=== PATIENT | female | born 1935 | race Caucasian/White ===

== ENCOUNTER 2019-12-08 12:17 | Inpatient (IN) | payer MEDICARE, SELFPAY ==
[2019-12-08] VITALS (21 sets, daily range): BP systolic 134–172; BP diastolic 56–90; PULSE 65–87; RESP 12–18; TEMP 36.3–37; O2SAT 94–100; BMI 31.5
--- NOTE | 2019-12-08 13:25 | XR_ITS ---
WS: [id number] EXAM: AP CHEST: PORTABLE UPRIGHT DATE OF EXAM: 12/08/2019, 1350 hours COMPARISON: Chest x-ray from 05/28/2014 HISTORY: Patient is 84 years old with dyspnea. FINDINGS: The cardiac silhouette is normal in size. The mediastinal contours are normal. The pulmonary vas cularity is normal. Radiograph is lordotic in positioning. Lungs are clear other than loss in the le ft heart border felt to be related to a prominent pericardial fat pad which was also noted back in . There is no effusion or pneumothorax. No acute bony abnormality is seen. XR/XR chest 1V portable [id number] IMPRESSION: No acute pulmonary disease.
--- NOTE | 2019-12-08 13:27 | ECG_ITS ---
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 Measurements Intervals [place] Rate: 74 P: 13 NM: 181 QRS: -4 QRSD: 86 T: 22 QT: 364 QTc: 406 Interpretive Statements SINUS RHYTHM LEFT VENTRICULAR HYPERTROPHY AND ST-T CHANGE [VOLTAGE CRITERIA PLUS ST/T ABNORMALITY] Compared to ECG 08/10/2016 11:42:06 Left ventricular hypertrophy now present ST (T wave) deviation now present Myocardial infarct finding no longer present Electronically Signed On 12-09-2019 19:39:15 CDT by Ras Neely M.D. [email or web address] [email or web address] Technologiesprotestant hospital.[employer]/store/NU/[id number] anjali
--- NOTE | 2019-12-08 13:55 | ED_ITS ---
HPI - Chest Pain General: Chief Complaint: Chest Pain Stated Complaint: CHEST PAIN/ WEAKNESS/ INCREASED CONFUSION Time Seen by Provider: 12/08/19 12:19 History of Present Illness: HPI narrative: 84-year-old female comes in complaining of shaking and weakness. Also saying she is intermittently had chest pain for the last 2 months a little bit more epigastric in nature she has had some shortness of breath and has been becoming progressively weak. She is lives with her daughter and grandson who provide most of her assistance with daily activities of living. Grandson is present emergency room and states she is definitely more confused today started overnight yesterday she was having far less difficulty. She does report during the course of the history having luciana black complaint: chest heaviness and chest discomfort Pertinent past history: other (Diabetes hypertension hyperlipidemia) Onset (ago): month(s) (2) Timing of current episode: episodic and increasing Prior episodes: Yes Onset: during rest and during exertion Pain location: left chest Pain radiation: none Severity: moderate Quality: heaviness Relieving factors: rest Exacerbating factors: exertion Associated symptoms: Reports abdominal pain (Epigastric) and dyspnea; Deny fever(s) Treatment prior to arrival: none Review of Systems Const: Denies: fever(s), chills, body aches, change in appetite, fatigue or malaise ENMT: Denies: throat pain, ear or mastoid pain, nasal discharge or nasal con gestion Card: Denies: chest pain, edema, dyspnea on exertion or orthopnea Resp: Reports: dyspnea GI: Reports: abdominal pain (Epigastric) : Denies: flank pain, difficulty voiding, dysuria, urinary frequency or urinary urgency Skin/Breast: Denies: rash or pruritus PFSH ED PFSH: Medical History Ankle fracture, left Diabetes mellitus type 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 Social History Smoking and tobacco status: never smoked Alcohol intake: never Physical Exam Const: COMMON NORMALS: no acute distress GENERAL APPEARANCE: cooperative and comfortable ORIENTATION/CONSCIOUSNESS: Yes awake, Yes oriented to person, Yes oriented to place and Yes oriented to time HENMT: COMMON NORMALS: normocephalic and atraumatic HEAD & SCALP: normocephalic and atraumatic Eye: COMMON NORMALS: Equal, round and reactive pupils present, EOMs intact bilaterally, conjunctivae normal and no scleral icterus CONJUNCTIVA: Yes conjunctivae normal PUPIL: Yes Equal, round and reactive pupils present Neck/C-Spine: COMMON NORMALS: full ROM, no lymphadenopathy, supple and no JVD Lymph: LYMPHATIC: no lymphadenopathy noted and no lymphedema noted Resp: COMMON NORMALS: normal respiratory effort, No retractions, No use of accessory muscles and clear to auscultation bilaterally AUSCULTATION: clear to auscultation bilaterally Cardio: COMMON NORMALS: no JVD, regular rate, regular rhythm and No murmurs present (Cardio) RATE: regular rate RHYTHM: regular rhythm GI: COMMON NORMALS: Soft to palpation and No hepatosplenomegaly present AUSCULTATION: Yes normoactive bowel sounds PALPATION: Yes Soft to palpation, No Tenderness to palpation present (GI), No Guarding due to palpation present (GI) and Yes No hepatosplenomegaly present Extremity: COMMON NORMALS: normal to inspection, capillary refill normal, no clubbing, cyanosis or edema, no calf tenderness and no pedal edema Neuro: SENSORIUM/ORIENTATION: Yes oriented to person, Yes oriented to place and Yes oriented to time Skin: COMMON NORMALS: no rashes or lesions noted GENERAL SKIN EXAM: no rashes or lesions noted Course Vital Signs: Vital signs: Vital Signs Pulse Rate 87 12/08/19 15:31 Respiratory Rate 18 12/08/19 15:31 Blood Pressure 172/90 12/08/19 15:31 Pulse Oximetry 98 12/08/19 15:31 MDM - Chest Pain MDM Narrative: Medical decision making narrative: Patient is acutely anemic with a hemoglobin of 6.1. She is also mildly hyponatremic discussed with Dr. Ortiz as well as with the patient and her grandson we will go ahead and admit her. Her BUN is elevated she has had black tarry stools as well she was given IV Protonix and will order 2 units of packed red blood cells for transfusion. Lab Data: Labs: Lab Results 08/21/20 08/21/20 08/21/20 Range/Units 13:58 13:58 13:58 WBC 13.5 H (4.0-10.0) 10^3/ uL RBC 2.33 L (4.1-5.3) 10^6/u L Hgb 6.1 L* (11.5-15.3) g/dL Hct 20.7 L* (37.0-47.0) % MCV 88.8 (81-99) fL MCH 26.2 L (28.0-34.0) pg MCHC 29.5 L (30.0-36.0) g/dL RDW 13.2 (12.1-15.1) % Plt Count 398 (130-400) 10^3/c mm MPV 10.0 (7.4-10.4) fL Neut % (Auto) 77.0 % Lymph % (Auto) 16.2 % [place] % (Auto) 4.9 % Eos % (Auto) 0.3 % Baso % (Auto) 0.7 % Neut # (Auto) 10.40 H (1.8-7.7) 10^3/u L Lymph # (Auto) 2.2 (0.8-4.8) 10^3/u L [place] # (Auto) 0.7 (0.2-0.9) 10^3/u L Eos # (Auto) 0.0 (0.0-0.8) 10^3/u L Baso # (Auto) 0.1 (0.0-0.1) 10^3/u L Nucleated RBC % (a uto) 0 % Nucleated RBCs # 0.0 /100WBC Sodium 130 L (136-145) mmol/L Potassium 5.1 (3.5-5.1) mmol/L Chloride 100 (98-107) mmol/L Carbon Dioxide 19 L (22-29) mmol/L Anion Gap 16.1 (5-19) BUN 58 H (8-23) mg/dL Creatinine 1.4 H (0.5-0.9) mg/dL GFR Calculation Not Reportable Glucose 268 H (65-115) mg/dL Calculated Osmolal ity 278 L (285-295) mOsm/k g Calcium 9.3 (8.5-10.5) mg/dL Total Bilirubin 0.2 (0.15-1.2) mg/dL AST 16 (0-32) U/L ALT 14 (0-33) U/L Alkaline Phosphata se 72 (35-105) IU/L Troponin T Baselin e 53 H (0-10) ng/L Total Protein 6.1 L (6.6-8.7) g/dL Albumin 3.4 L (3.5-5.2) g/dL Globulin 2.7 (1.3-4.6) g/dL Urine Color (Yellow) Urine Appearance (CLEAR) Urine pH (5-7) Ur Specific Gravit y (1.005-1.030) Urine Protein (Negative) Urine Glucose (UA) (Normal) Urine Ketones (Negative) Urine Blood (Negative) Urine Nitrate (Negative) Urine Bilirubin (NEGATIVE) Urine Urobilinogen (Negative) mg/dL Ur Leukocyte Joyce ase (Negative) Urine RBC (0-2) /hpf Urine WBC (0-5) /hpf Ur Squamous Epith Cells (0-5) Amorphous Sediment Urine Bacteria (NONE) 12/08/19 Range/Units 14:56 WBC (4.0-10.0) 10^3/ uL RBC (4.1-5.3) 10^6/u L Hgb (11.5-15.3) g/dL Hct (37.0-47.0) % MCV (81-99) fL MCH (28.0-34.0) pg MCHC (30.0-36.0) g/dL RDW (12.1-15.1) % Plt Count (130-400) 10^3/c mm MPV (7.4-10.4) fL Neut % (Auto) % Lymph % (Auto) % [place] % (Auto) % Eos % (Auto) % Baso % (Auto) % Neut # (Auto) (1.8-7.7) 10^3/u L Lymph # (Auto) (0.8-4.8) 10^3/u L [place] # (Auto) (0.2-0.9) 10^3/u L Eos # (Auto) (0.0-0.8) 10^3/u L Baso # (Auto) (0.0-0.1) 10^3/u L Nucleated RBC % (a uto) % Nucleated RBCs # /100WBC Sodium (136-145) mmol/L Potassium (3.5-5.1) mmol/L Chloride (98-107) mmol/L Carbon Dioxide (22-29) mmol/L Anion Gap (5-19) BUN (8-23) mg/dL Creatinine (0.5-0.9) mg/dL GFR Calculation Glucose (65-115) mg/dL Calculated Osmolal ity (285-295) mOsm/k g Calcium (8.5-10.5) mg/dL Total Bilirubin (0.15-1.2) mg/dL AST (0-32) U/L ALT (0-33) U/L Alkaline Phosphata se (35-105) IU/L Troponin T Baselin e (0-10) ng/L Total Protein (6.6-8.7) g/dL Albumin (3.5-5.2) g/dL Globulin (1.3-4.6) g/dL Urine Color Yellow (Yellow) Urine Appearance Hazy A (CLEAR) Urine pH 5 (5-7) Ur Specific Gravit y 1.015 (1.005-1.030) Urine Protein 1+ H (Negative) Urine Glucose (UA) 1+ (Normal) Urine Ketones Negative (Negative) Urine Blood Neg (Negative) Urine Nitrate Negative (Negative) Urine Bilirubin Neg (NEGATIVE) Urine Urobilinogen Neg (Negative) mg/dL Ur Leukocyte Joyce ase Negative (Negative) Urine RBC None (0-2) /hpf Urine WBC 5-10 H (0-5) /hpf Ur Squamous Epith Cells 0-4 H (0-5) Amorphous Sediment Not Reportable Urine Bacteria 3+ H (NONE) Discharge Plan Discharge Patient Disposition: Admitted As Inpatient Admit Provider: Charles Ortiz Clinical Impression: Upper GI bleed, Acute blood loss anemia, Urinary tract infection, Acute kidney injury, Dyslipidemia, Diabetes mellitus type 2 in obese, Mild dementia, Dehydration with hyponatremia, Hypertension, Hypothyroidism Condition: Stable Interventions: ED Discharge Assessment Last Done: 12/08/19 15:31 ED Charges Last Done: 12/08/19 15:31 Discharge Date/Time: 12/08/19 16:09 Coding Level of Care Code ED Evaluator Transfer Students for Valeria Disla
[2019-12-08] MEDS: sodium chloride 0.9% 500 ML 999 ML IV (14:06)
[2019-12-08 14:19] LABS: Basophils # 0.1 10^3/uL (0.0-0.1); Basophils % 0.7 %; Eosinophils % 0.3 %; Lymphocytes # 2.2 10^3/uL (0.8-4.8); Lymphocytes % 16.2 %; Mean Corpuscular HGB Conc 29.5 g/dL (30.0-36.0); Mean Corpuscular Hemoglobin 26.2 pg (28.0-34.0); Mean Corpuscular Volume 88.8 fL (81-99); Monocytes # 0.7 10^3/uL (0.2-0.9); Monocytes % 4.9 %; Nucleated Red Blood Cells % 0 %; Platelet Count 398 10^3/cmm (130-400); Red Blood Count 2.33 10^6/uL (4.1-5.3); Red Cell Distribution Width 13.2 % (12.1-15.1); White Blood Count 13.5 10^3/uL (4.0-10.0)
[2019-12-08 14:27] LABS: Alanine Aminotransferase 14 U/L (0-33); Albumin Level 3.4 g/dL (3.5-5.2); Alkaline Phosphatase 72 IU/L (35-105); Aspartate Amino Transferase 16 U/L (0-32); Blood Urea Nitrogen 58 mg/dL (8-23); Calcium 9.3 mg/dL (8.5-10.5); Carbon Dioxide 19 mmol/L (22-29); Chloride 100 mmol/L (98-107); Globulin 2.7 g/dL (1.3-4.6); Glucose 268 mg/dL (65-115); Osmolality Calculated 278 mOsm/kg (285-295); Sodium 130 mmol/L (136-145); Total Bilirubin 0.2 mg/dL (0.15-1.2); Total Protein 6.1 g/dL (6.6-8.7)
[2019-12-08 14:29] LABS: Troponin(5th) Baseline 53 ng/L (0-10)
[2019-12-08 14:33] LABS: Hematocrit 20.7 % (37.0-47.0); Hemoglobin 6.1 g/dL (11.5-15.3)
[2019-12-08 14:45] LABS: Anion Gap 16.1 (5-19); Potassium 5.1 mmol/L (3.5-5.1)
[2019-12-08 15:21] LABS: Add Urine Microscopic? YES; Bilirubin Urine Neg (NEGATIVE); Blood Urine Neg (Negative); Glucose Urine UA 1+ (Normal); Ketones Urine Negative (Negative); Leukocyte Esterase Urine Negative (Negative); Nitrate Urine Negative (Negative); Protein Urine 1+ (Negative); Specific Gravity, Urine 1.015 (1.005-1.030); Urine Appearance Hazy (CLEAR); Urine Color Yellow (Yellow); Urobilinogen Urine Neg (Negative); pH Urine 5 (5-7)
[2019-12-08 15:24] LABS: Bacteria Urine 3+; Squamous Epithelial Cell Urine 0-4 (0-5)
[2019-12-08 15:25] LABS: Add Urine Culture? Yes
--- NOTE | 2019-12-08 15:27 | ECG_ITS ---
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 Measurements Intervals [place] Rate: 68 P: 64 ME: 179 QRS: 29 QRSD: 85 T: 47 QT: 373 QTc: 398 Interpretive Statements SINUS RHYTHM MODERATE ST DEPRESSION [0.05+ mV ST DEPRESSION] Compared to ECG 08/10/2016 11:42:06 ST (T wave) deviation now present Electronically Signed On 12-10-2019 19:54:42 CDT by Ras Neely M.D. [id number]
[2019-12-08 16:14] LABS: Troponin 5 2HR 54.99 ng/L (0-10); Troponin 5 2HR Delta 1.99 ABS# (0-10)
--- NOTE | 2019-12-08 16:59 | P.HP_ITS ---
Providers/Chief Complaint Admitting Physician: Charles Ortiz MD Chief Complaint: CHEST PAIN/ WEAKNESS/ INCREASED CONFUSION History of Present Illness Nuria Ramos is a 84 year old female was brought to emergency department with generalized weakness and melanotic stools for the last 2 days. She reports burning-like sensation under her left breast and epigastric area. She has been nauseous but did not vomit. She reports feeling very cold in the last several weeks but denies fever or chills. She never had upper endoscopy or colonoscopy. She denies taking any NSAIDs or steroids. Reports frequently taking Tylenol. In emergency department patient was found to have hemoglobin 6.1 as well as what appears to be acute kidney injury with significantly elevated BUN at 58. Her sodium is 130 and she appears very dry and dehydrated. She has been diabetic for the last 20 or so years but denies any previous history of heart disease or stroke. She has minimally elevated troponin with negative delta. She also appears to have UTI. Overall patient is very hard of hearing and poor historian. Patient's grandson at bedside helped provide the history. Review of Systems Const: Denies: fever(s) or chills Eyes: Denies: change in vision ENMT: Denies: throat pain or change in hearing Card: Reports: chest pain; Denies: edema or lightheadedness Resp: Denies: dyspnea or productive cough GI: Reports: abdominal pain, nausea and melena; Denies: vomiting, dysphagia, diarrhea, constipation or hematochezia : Denies: difficulty voiding Musc: Denies: joint pain or joint swelling Skin/Breast: Denies: rash or erythema Neuro: Reports: headache(s) (Minimal frontal headache for the last several days); Denies: weakness in extremities Psych: Denies: depression or suicidal ideation Endo: Denies: excessive sweating Man/Lymph: Denies: easy bleeding or tender lymph nodes All/Imm: Denies: throat swelling Medications/Allergies Home Medications Medication Instructions Recorded Confirmed Last Taken Type acetaminophen [Tylenol Extra 1,000 mg PO PRN 12/08/19 12/08/19 12/08/19 History Strength] amlodipine 5 mg PO BID 12/08/19 12/08/19 Unknown History furosemide 20 mg PO DAILY 12/08/19 12/08/19 Unknown History insulin aspart U-100 [Novolog See Rx Instructions .ROUTE .COMPLEX 12/08/19 12/08/19 Unknown History Flexpen U-100 Insulin] insulin detemir U-100 [Levemir See Rx Instructions .ROUTE .COMPLEX 12/08/19 12/08/19 Unknown History FlexTouch U-100 Insuln] levothyroxine 112 mcg PO DAILY 12/08/19 12/08/19 12/08/19 History metformin 750 mg PO DAILY 12/08/19 12/08/19 Unknown History metoprolol succinate 400 mg PO DAILY 12/08/19 12/08/19 Unknown History potassium chloride 20 meq PO DAILY 12/08/19 12/08/19 Unknown History pravastatin 80 mg PO DAILY 12/08/19 12/08/19 Unknown History Allergies Allergy/AdvReac Type Severity Reaction Status Date / Time No Known Drug Allergies Allergy Unknown Verified 12/08/19 14:04 PFSH Acute PFSH: Medical History (Updated 12/08/19 @ 17:15 by Charles Ortiz MD) Ankle fracture, left Diabetes mellitus type 2 in obese Dyslipidemia Hypertension Hypothyroidism Mild dementia Surgical History (Updated 12/08/19 @ 17:09 by Charles Ortiz MD) 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 Social History (Updated 12/08/19 @ 17:09 by Charles Ortiz MD) Smoking and tobacco status: never smoked Alcohol intake: never Vitals/I&O/Wt Last Vital Signs Pulse 87 12/08/19 15:31 Resp 18 12/08/19 15:31 BP 172/90 12/08/19 15:31 Pulse Ox 98 12/08/19 15:31 12/08/19 12/08/19 12/08/19 06:59 14:59 22:59 Intake Total 500 / 500 Balance 500 / 500 Weight last 48 hrs Weight 99.79 kg Physical Exam Const: COMMON NORMALS: no acute distress, patient oriented x3 and alert HENMT: COMMON NORMALS: normocephalic and atraumatic HEAD & SCALP: normocephalic and atraumatic Eye: COMMON NORMALS: EOMs intact bilaterally, conjunctivae normal and no scleral icterus CONJUNCTIVA: Yes conjunctivae normal Neck/C-Spine: COMMON NORMALS: no lymphadenopathy and no meningeal signs Lymph: LYMPHATIC: no lymphadenopathy noted Chest: OTHER: Tenderness was elicited on palpation of the chest bilaterally but left side more than right. Resp: COMMON NORMALS: No use of accessory muscles and clear to auscultation bilaterally AUSCULTATION: clear to auscultation bilaterally Cardio: COMMON NORMALS: regular rate, regular rhythm and No murmurs present (Cardio) RATE: regular rate RHYTHM: regular rhythm OTHER: No lower extremity edema GI: COMMON NORMALS: Soft to palpation PALPATION: Yes Soft to palpation and Yes Tenderness to palpation present (GI) (Epigastric area) RECTAL EXAM: deferred : COMMON NORMALS: Yes no CVA tenderness BLADDER/KIDNEY EXAM: Yes no CVA tenderness Back/Pelvis: COMMON NORMALS: no CVA tenderness and thoracic and lumbar spine normal to inspection Extremity: COMMON NORMALS: normal to inspection and capillary refill normal Neuro: COMMON NORMALS: no focal motor deficits SENSORIUM/ORIENTATION: Yes alert MENINGEAL SIGNS: Yes no meningeal signs OTHER: Oriented to self and place. Hard of hearing. Psych: COMMON NORMALS: mental status grossly normal, Normal thought process present and cooperative THOUGHT PROCESS: Normal thought process present Skin: COMMON NORMALS: no rashes or lesions noted GENERAL SKIN EXAM: no rashes or lesions noted Data : 12/08/19 13:58 12/08/19 13:58 A&P Assessment and plan (1) Hypertension: Status: Acute (2) Acute blood loss anemia: Status: Acute (3) Upper GI bleed: Status: Acute (4) Urinary tract infection: Status: Acute (5) Acute kidney injury: Prerenal. Likely second to dehydration and GI bleed. Status: Acute (6) Dyslipidemia: Status: Acute (7) Hypothyroidism: Status: Acute (8) Diabetes mellitus type 2 in obese: Status: Acute (9) Mild dementia: Status: Acute (10) Dehydration with hyponatremia: Status: Acute Additional A&P Information PLAN: Start patient on ceftriaxone. Awaiting urine culture results. 2 units of PRBC was ordered in ER. 80 mg Protonix IV was given in ER and we will continue 40 mg twice daily. Start patient on gentle IV hydration. Clear liquid diet for now. If patient continues to bleed consider upper endoscopy otherwise if hemoglobin stabilizes we may consider outpatient evaluation. Hold Lasix. Attestations Medical Necessity Statement*: Patient with UTI and acute GI bleed requires close inpatient monitoring and treatment. I expect patient will require more than 2 midnights. Time Spent in Patient Care: Greater than 35 minutes Coding Level of Care Code Acute Cilnical Scientist for Chg Fwd Diagnoses Hypertension I10 Acute blood loss anemia D62 Upper GI bleed K92.2 Urinary tract infection N39.0 Acute kidney injury N17.9 Dyslipidemia E78.5 Hypothyroidism E03.9 Diabetes mellitus type 2 in obese E11.69; E66.9 Mild dementia F03.90 Dehydration with hyponatremia E86.0; E87.1
[2019-12-08 18:02] LABS: Glucose Point of Care 251 mg/dL (70-110)
[2019-12-08] MEDS: sodium chloride 0.9% 1,000 ML 75 ML IV (18:07)
[2019-12-08] MEDS: cefTRIAXone 1,000 MG in sodium chloride 0.9% (plus) 50 ML 100 MG IV (18:08)
[2019-12-08] MEDS: amlodipine 5 mg Tablet PO (18:08)
--- NOTE | 2019-12-08 18:25 | PC.NURSE ---
80mg IV protonix ordered for pt in ED, she did not receive this dose in the ED. Dr. Ortiz notified.Telephone orders received to give pt one time dose of 80mg IV protonix and then give 40mg IV BID.
[2019-12-08] MEDS: pantoprazole 40 mg SDV IVP ×2 (18:29)
[2019-12-08 21:27] LABS: Glucose Point of Care 170 mg/dL (70-110)
--- NOTE | 2019-12-08 22:20 | PC.NURSE ---
PRBC'S Second unit of PRBC's started by MARTI Lockwood
[2019-12-09] VITALS (7 sets, daily range): BP systolic 120–149; BP diastolic 60–83; PULSE 61–68; RESP 16–20; TEMP 36.6–36.9; O2SAT 91–99
[2019-12-09 04:02] LABS: Basophils # 0.1 10^3/uL (0.0-0.1); Basophils % 0.9 %; Eosinophils # 0.2 10^3/uL (0.0-0.8); Eosinophils % 1.9 %; Hematocrit 23.6 % (37.0-47.0); Hemoglobin 7.4 g/dL (11.5-15.3); Lymphocytes # 2.6 10^3/uL (0.8-4.8); Lymphocytes % 21.1 %; Mean Corpuscular HGB Conc 31.4 g/dL (30.0-36.0); Mean Corpuscular Hemoglobin 28.1 pg (28.0-34.0); Mean Corpuscular Volume 89.7 fL (81-99); Mean Platelet Volume 9.7 fL (7.4-10.4); Monocytes # 0.9 10^3/uL (0.2-0.9); Monocytes % 7.4 %; Neutrophils # 8.54 10^3/uL (1.8-7.7); Neutrophils % 68.1 %; Nucleated Red Blood Cells % 0 %; Platelet Count 344 10^3/cmm (130-400); Red Blood Count 2.63 10^6/uL (4.1-5.3); Red Cell Distribution Width 14.6 % (12.1-15.1); White Blood Count 12.5 10^3/uL (4.0-10.0)
[2019-12-09 04:25] LABS: Magnesium 1.7 mg/dL (1.7-2.3); Phosphorus 2.6 mg/dL (2.5-4.5)
[2019-12-09 04:26] LABS: Alanine Aminotransferase 11 U/L (0-33); Alkaline Phosphatase 65 IU/L (35-105); Anion Gap 12.7 (5-19); Aspartate Amino Transferase 14 U/L (0-32); Blood Urea Nitrogen 44 mg/dL (8-23); Calcium 9.8 mg/dL (8.5-10.5); Carbon Dioxide 21 mmol/L (22-29); Chloride 108 mmol/L (98-107); Glucose 155 mg/dL (65-115); Osmolality Calculated 285 mOsm/kg (285-295); Potassium 4.7 mmol/L (3.5-5.1); Sodium 137 mmol/L (136-145); Total Bilirubin 0.2 mg/dL (0.15-1.2)
[2019-12-09 04:33] LABS: Estmated Average Glucose 160; Hemoglobin A1C 7.2 % (4.0-6.0)
[2019-12-09 05:23] LABS: Partial Thromboplastin Time 32.1 SECONDS (23.9-36.7)
[2019-12-09] MEDS: pantoprazole 40 mg SDV IVP ×2 (06:04→17:19)
[2019-12-09 06:57] LABS: Glucose Point of Care 177 mg/dL (70-110)
[2019-12-09] MEDS: amlodipine 5 mg Tablet PO ×2 (08:33→17:19)
[2019-12-09] MEDS: levothyroxine 112 mcg Tablet PO (08:33)
[2019-12-09] MEDS: atorvastatin 40 mg Tablet 20 MG PO (08:33)
[2019-12-09] MEDS: metoprolol succinate ER (24 HR) 100 mg Tablet 400 MG PO (08:37)
[2019-12-09] MEDS: sodium chloride 0.9% 1,000 ML 75 ML IV ×2 (08:41→20:18)
[2019-12-09 11:44] LABS: Glucose Point of Care 278 mg/dL (70-110)
[2019-12-09] MEDS: acetaminophen 500 mg Tablet 1000 MG PO (14:38)
--- NOTE | 2019-12-09 15:38 | P.PN_ITS ---
Subjective Subjective: Interval history: Patient reports feeling better. Denies shortness of breath or chest pain. Denies abdominal pain. Denies being nauseous. Hemoglobin is at 7.4 after 2 units of blood. Patient's vitals otherwise are adequate with no evidence of hypotension. No bowel movement. She appears to be more attentive. Vitals/I&O/Wt Last Vital Signs Temp 98.4 F 12/09/19 15:29 Pulse 66 12/09/19 15:29 Resp 18 12/09/19 15:29 BP 120/60 12/09/19 15:29 Pulse Ox 99 12/09/19 15:29 12/09/19 12/09/19 12/09/19 06:59 14:59 22:59 Intake Total 500 / 1350 1120 / 1120 Output Total 550 / 750 600 / 600 Balance -50 / 600 520 / 520 Weight last 48 hrs Weight 99.79 kg Physical Exam Const: COMMON NORMALS: no acute distress and patient oriented x3 Resp: COMMON NORMALS: normal respiratory effort and clear to auscultation bilaterally AUSCULTATION: clear to auscultation bilaterally Cardio: COMMON NORMALS: regular rate, regular rhythm and S2 normal heart sound present RATE: regular rate RHYTHM: regular rhythm HEART SOUNDS: S2 normal heart sound present OTHER: No lower extremity edema GI: COMMON NORMALS: Normal to inspection, nondistended, normoactive bowel sounds present, Soft to palpation and non-tender PALPATION: Yes Soft to palpation Neuro: COMMON NORMALS: patient oriented x3 and no focal motor deficits Data : 12/09/19 03:36 12/09/19 03:36 Micro: Microbiology 12/08/19 14:56 Urine Culture - Preliminary Urine,Clean Catch Gram Negative Rods A&P Assessment and plan (1) Hypertension: Status: Acute (2) Acute blood loss anemia: Status: Acute (3) Upper GI bleed: Status: Acute (4) Urinary tract infection: Status: Acute (5) Acute kidney injury: Prerenal. Likely second to dehydration and GI bleed. Status: Acute (6) Dyslipidemia: Status: Acute (7) Hypothyroidism: Status: Acute (8) Diabetes mellitus type 2 in obese: Status: Acute (9) Mild dementia: Status: Acute (10) Dehydration with hyponatremia: Status: Acute Additional A&P Information PLAN: Continue IV hydration and clear liquid diet. Discussed with Dr. Brown who will see patient in consultation for EGD tomorrow morning. Monitor vitals and consider transfusing if shows evidence of hypotension. Attestations Medical Necessity Statement*: Patient with upper GI bleed requires close inpatient monitoring, treatment and evaluation. Time Spent in Patient Care: 16 - 35 minutes Coding Level of Care Code Acute Turner Machine for [facility] Fwd Diagnoses Hypertension I10 Acute blood loss anemia D62 Upper GI bleed K92.2 Urinary tract infection N39.0 Acute kidney injury N17.9 Dyslipidemia E78.5 Hypothyroidism E03.9 Diabetes mellitus type 2 in obese E11.69; E66.9 Mild dementia F03.90 Dehydration with hyponatremia E86.0; E87.1
--- NOTE | 2019-12-09 16:42 | P.CONIM_ITS ---
Providers/Reason For Consult Consulting Physican/Specialty*: Dean Villalobos MD Reason for Consult*: GI bleed Attending Physician: Charles Ortiz MD History of Present Illness History of Present Illness Chief Complaint: Black stool History of present illness: Nuria Ramos is a 84 year old female presented to the emergency department with generalized fatigue and has been experiencing black stool over the last couple of days, patient denies any previous endoscopies done on her before no history of peptic ulcer disease or gastric surgery, patient has been nauseous but no evidence of hematemesis or vomiting in general. Patient denies taking NSAIDs or steroids and she was found to have UTI General surgery was consulted for further evaluation and potential intervention in the form of diagnostic EGD Review of Systems General: Reports: 10 or more systems reviewed and unremarkable except in HPI and below Meds/Allergies Home Medications and Allergies Home Medications Medication Instructions Recorded Confirmed Last Taken Type acetaminophen [Tylenol Extra 1,000 mg PO PRN 12/08/19 12/08/19 12/08/19 History Strength] amlodipine 5 mg PO BID 12/08/19 12/08/19 Unknown History furosemide 20 mg PO DAILY 12/08/19 12/08/19 Unknown History insulin aspart U-100 [Novolog See Rx Instructions .ROUTE .COMPLEX 12/08/19 12/08/19 Unknown History Flexpen U-100 Insulin] insulin detemir U-100 [Levemir See Rx Instructions .ROUTE .COMPLEX 12/08/19 12/08/19 Unknown History FlexTouch U-100 Insuln] levothyroxine 112 mcg PO DAILY 12/08/19 12/08/19 12/08/19 History metformin 750 mg PO DAILY 12/08/19 12/08/19 Unknown History metoprolol succinate 400 mg PO DAILY 12/08/19 12/08/19 Unknown History potassium chloride 20 meq PO DAILY 12/08/19 12/08/19 Unknown History pravastatin 80 mg PO DAILY 12/08/19 12/08/19 Unknown History Allergies Allergy/AdvReac Type Severity Reaction Status Date / Time No Known Drug Allergies Allergy Unknown Verified 12/09/19 17:47 Current Medications Current Medications Generic Name Dose Route Start Last Admin Trade Name Freq PRN Reason Stop Dose Admin Acetaminophen 1,000 mg 12/08/19 17:15 12/09/19 14:38 Tylenol PO 1,000 mg PRN SEGUN Administration Amlodipine Besylate 5 mg 12/08/19 18:00 12/09/19 08:33 Norvasc PO 5 mg BID SEGUN Administration Atorvastatin Calcium 20 mg 12/09/19 09:00 12/09/19 08:33 Lipitor PO 20 mg DAILY SEGUN Administration Ceftriaxone Sodium 1,000 mg/ 50 mls @ 100 mls/hr 12/08/19 17:30 12/08/19 18:08 Sodium Chloride IV 100 mls/hr Q24H SEGUN Administration Protocol Sodium Chloride 1,000 mls @ 75 mls/hr 12/08/19 17:30 12/09/19 08:41 Sodium Chloride 0.9% IV 75 mls/hr .[id number] SEGUN Administration Insulin Aspart 0 unit 12/08/19 18:00 12/09/19 12:35 Novolog SUBCUT 10 unit WM&BEDTIME SEGUN Administration Protocol Levothyroxine Sodium 112 mcg 12/09/19 09:00 12/09/19 08:33 Synthroid PO 112 mcg DAILY SEGUN Administration Metoprolol Succinate 400 mg 12/09/19 09:00 12/09/19 08:37 Toprol Xl PO 400 mg DAILY SEGUN Administration Pantoprazole Sodium 40 mg 12/08/19 17:30 12/09/19 06:04 Protonix IVP 40 mg Q12H SEGUN Administration PFSH Acute PFSH: Medical History Ankle fracture, left Diabetes mellitus type 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 Social History Smoking and tobacco status: never smoked Alcohol intake: never Vitals/I&O/Wt Last Vital Signs Temp 98.4 F 12/09/19 15:29 Pulse 66 12/09/19 15:29 Resp 18 12/09/19 15:29 BP 120/60 12/09/19 15:29 Pulse Ox 99 12/09/19 15:29 12/09/19 12/09/19 12/09/19 06:59 14:59 22:59 Intake Total 500 / 1350 1120 / 1120 Output Total 550 / 750 600 / 600 Balance -50 / 600 520 / 520 Weight last 48 hrs Weight 220 lb Physical Exam Narrative: EXAM NARRATIVE: Patient is conscious alert oriented X3 BMI 32 Head and neck examination PERRLA no masses no cervical lymphadenopathy no jaundice Cardiac examination audible S1-S2 no murmurs no gallops no arrhythmias Chest is clear bilateral,abscence of Rhonchi or wheezes,no surgical emphysema Abdomen nontender nondistended soft no organomegaly guarding or rigidity/no signs of peritonitis Obese Data Micro: Micro: Microbiology 12/09/19 14:40 Occult Blood (FIT) - Final Stool Routine Col lection 12/08/19 14:56 Urine Culture - Pr eliminary Urine,Clean Catch Gram Negative R ods A&P Assessment and plan (1) Upper GI bleed: Plan of care; After thorough history and physical examination and reviewing the chart, plan to perform a diagnostic esophagogastroduodenoscopy with possible biopsy in the GI lab tomorrow. I discussed with the patient in detail the risk,benefits,alternatives and indications.The risk of aspiration, bleeding, soft tissue injury, perforation of the stomach/esophagus and other potential concomitant complications were explained to the patient in details.The patient understood this well and did agree to proceed. Rationale was carefully and clearly discussed with the patient.Appropriate informed consent have been reviewed and signed All questions have been answered and all concerns have been addressed to patient's satisfaction. Status: Acute Consult Attestations Medical Necessity Statement: Per Hospitalist service Time Spent in Patient Care: (>than 50% of time spent in counselling and/or direct pt care on unit) . 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
[2019-12-09 16:46] LABS: Glucose Point of Care 210 mg/dL (70-110)
[2019-12-09] MEDS: cefTRIAXone 1,000 MG in sodium chloride 0.9% (plus) 50 ML 100 MG IV (17:18)
--- NOTE | 2019-12-09 19:02 | PC.NURSE ---
End of Shift report Patient did well today. Patient did have a large dark stool and a sample was sent. Patient's will be NPO at midnight and will have a scope at 0800 in the morning. Patient's consent is signed. Patient is up with one assist to the bedside commode and voids 200 to 300 mls at a time. Patient has had Tylenol one time today for back pain.
[2019-12-09 20:33] LABS: Glucose Point of Care 237 mg/dL (70-110)
[2019-12-10] VITALS (17 sets, daily range): BP systolic 112–147; BP diastolic 48–84; PULSE 61–79; RESP 16–18; TEMP 36.2–36.9; O2SAT 94–100
[2019-12-10 04:34] LABS: Magnesium 1.6 mg/dL (1.7-2.3); Phosphorus 2.3 mg/dL (2.5-4.5)
[2019-12-10] MEDS: pantoprazole 40 mg SDV IVP ×2 (05:10→17:22)
[2019-12-10 06:46] LABS: Glucose Point of Care 228 mg/dL (70-110)
--- NOTE | 2019-12-10 07:27 | PC.NURSE ---
Spoke with Naima patient's daughter who verbalized understanding of GI scope today.
--- NOTE | 2019-12-10 07:37 | PC.NURSE ---
Patient to GI lab at this time.
--- NOTE | 2019-12-10 07:43 | ANES.PAUD2 ---
Pre-Anesthetic Update Pre-Anesthetic Assessment: Date of Surgery/Procedure: 12/10/19 Preop Diagnosis: GI bleed Proposed Procedure: Operation Date: 12/10/19 08:00 Proposed Procedures p EGD(Not Applicable) - Dean Villalobos MD Any changes to Pre-Anesthetic Assessment?: Yes Labs Last 48hrs: Laboratory Results - last 48 hr 12/08/19 12/08/19 12/08/19 13:58 13:58 13:58 WBC 13.5 H RBC 2.33 L Hgb 6.1 L* Hct 20.7 L* MCV 88.8 MCH 26.2 L MCHC 29.5 L RDW 13.2 Plt Count 398 MPV 10.0 Neut % (Auto) 77.0 Lymph % (Auto) 16.2 [place] % (Auto) 4.9 Eos % (Auto) 0.3 Baso % (Auto) 0.7 Neut # (Auto) 10.40 H Lymph # (Auto) 2.2 [place] # (Auto) 0.7 Eos # (Auto) 0.0 Baso # (Auto) 0.1 Nucleated RBC % (a uto) 0 Nucleated RBCs # 0.0 PT INR APTT Sodium 130 L Potassium 5.1 Chloride 100 Carbon Dioxide 19 L Anion Gap 16.1 BUN 58 H Creatinine 1.4 H GFR Calculation Not Reportable Glucose 268 H POC Glucose Estimat Average Gl ucose Hemoglobin A1c Calculated Osmolal ity 278 L Calcium 9.3 Phosphorus Magnesium Total Bilirubin 0.2 AST 16 ALT 14 Alkaline Phosphata se 72 Troponin T Baselin e 53 H Troponin T 120 Min [place] Troponin T Troponin T Hi Sens 6Hr Troponin T Hi Sens 6Hr Delta Total Protein 6.1 L Albumin 3.4 L Globulin 2.7 Urine Color Urine Appearance Urine pH Ur Specific Gravit y Urine Protein Urine Glucose (UA) Urine Ketones Urine Blood Urine Nitrate Urine Bilirubin Urine Urobilinogen Ur Leukocyte Joyce ase Urine RBC Urine WBC Ur Squamous Epith Cells Amorphous Sediment Urine Bacteria Blood Type Rho(D) Type Antibody Screen Crossmatch 12/08/19 12/08/19 12/08/19 14:56 15:40 15:40 WBC RBC Hgb Hct MCV MCH MCHC RDW Plt Count MPV Neut % (Auto) Lymph % (Auto) [place] % (Auto) Eos % (Auto) Baso % (Auto) Neut # (Auto) Lymph # (Auto) [place] # (Auto) Eos # (Auto) Baso # (Auto) Nucleated RBC % (a uto) Nucleated RBCs # PT INR APTT Sodium Potassium Chloride Carbon Dioxide Anion Gap BUN Creatinine GFR Calculation Glucose POC Glucose Estimat Average Gl ucose Hemoglobin A1c Calculated Osmolal ity Calcium Phosphorus Magnesium Total Bilirubin AST ALT Alkaline Phosphata se Troponin T Baselin e Troponin T 120 Min [place] 54.99 H Delta Troponin T 1.99 Troponin T Hi Sens 6Hr Troponin T Hi Sens 6Hr Delta Total Protein Albumin Globulin Urine Color Yellow Urine Appearance Hazy A Urine pH 5 Ur Specific Gravit y 1.015 Urine Protein 1+ H Urine Glucose (UA) 1+ Urine Ketones Negative Urine Blood Neg Urine Nitrate Negative Urine Bilirubin Neg Urine Urobilinogen Neg Ur Leukocyte Joyce ase Negative Urine RBC None Urine WBC 5-10 H Ur Squamous Epith Cells 0-4 H Amorphous Sediment Not Reportable Urine Bacteria 3+ H Blood Type O Positive Rho(D) Type Positive Antibody Screen Negative Crossmatch See Detail 12/08/19 12/08/19 12/08/19 17:54 20:51 21:25 WBC RBC Hgb Hct MCV MCH MCHC RDW Plt Count MPV Neut % (Auto) Lymph % (Auto) [place] % (Auto) Eos % (Auto) Baso % (Auto) Neut # (Auto) Lymph # (Auto) [place] # (Auto) Eos # (Auto) Baso # (Auto) Nucleated RBC % (a uto) Nucleated RBCs # PT INR APTT Sodium Potassium Chloride Carbon Dioxide Anion Gap BUN Creatinine GFR Calculation Glucose POC Glucose 251 170 Estimat Average Gl ucose Hemoglobin A1c Calculated Osmolal ity Calcium Phosphorus Magnesium Total Bilirubin AST ALT Alkaline Phosphata se Troponin T Baselin e Troponin T 120 Min [place] Troponin T Troponin T Hi Sens 6Hr 60.90 H Troponin T Hi Sens 6Hr Delta 7.90 Total Protein Albumin Globulin Urine Color Urine Appearance Urine pH Ur Specific Gravit y Urine Protein Urine Glucose (UA) Urine Ketones Urine Blood Urine Nitrate Urine Bilirubin Urine Urobilinogen Ur Leukocyte Joyce ase Urine RBC Urine WBC Ur Squamous Epith Cells Amorphous Sediment Urine Bacteria Blood Type Rho(D) Type Antibody Screen Crossmatch 12/09/19 12/09/19 12/09/19 03:36 03:36 03:36 WBC 12.5 H RBC 2.63 L Hgb 7.4 L Hct 23.6 L MCV 89.7 MCH 28.1 MCHC 31.4 D RDW 14.6 Plt Count 344 MPV 9.7 Neut % (Auto) 68.1 Lymph % (Auto) 21.1 [place] % (Auto) 7.4 Eos % (Auto) 1.9 Baso % (Auto) 0.9 Neut # (Auto) 8.54 H Lymph # (Auto) 2.6 [place] # (Auto) 0.9 Eos # (Auto) 0.2 Baso # (Auto) 0.1 Nucleated RBC % (a uto) 0 Nucleated RBCs # 0.0 PT 15.60 H INR 1.20 APTT 32.1 Sodium 137 Potassium 4.7 Chloride 108 H Carbon Dioxide 21 L Anion Gap 12.7 BUN 44 H Creatinine 1.4 H GFR Calculation Not Reportable Glucose 155 H POC Glucose Estimat Average Gl ucose Hemoglobin A1c Calculated Osmolal ity 285 Calcium 9.8 Phosphorus Magnesium Total Bilirubin 0.2 AST 14 ALT 11 Alkaline Phosphata se 65 Troponin T Baselin e Troponin T 120 Min [place] Troponin T Troponin T Hi Sens 6Hr Troponin T Hi Sens 6Hr [place] Total Protein 5.0 L Albumin 3.0 L Globulin 2.0 Urine Color Urine Appearance Urine pH Ur Specific Gravit y Urine Protein Urine Glucose (UA) Urine Ketones Urine Blood Urine Nitrate Urine Bilirubin Urine Urobilinogen Ur Leukocyte Joyce ase Urine RBC Urine WBC Ur Squamous Epith Cells Amorphous Sediment Urine Bacteria Blood Type Rho(D) Type Antibody Screen Crossmatch 12/09/19 12/09/19 12/09/19 03:36 03:36 06:50 WBC RBC Hgb Hct MCV MCH MCHC RDW Plt Count MPV Neut % (Auto) Lymph % (Auto) [place] % (Auto) Eos % (Auto) Baso % (Auto) Neut # (Auto) Lymph # (Auto) [place] # (Auto) Eos # (Auto) Baso # (Auto) Nucleated RBC % (a uto) Nucleated RBCs # PT INR APTT Sodium Potassium Chloride Carbon Dioxide Anion Gap BUN Creatinine GFR Calculation Glucose POC Glucose 177 Estimat Average Gl ucose 160 Hemoglobin A1c 7.2 H Calculated Osmolal ity Calcium Phosphorus 2.6 Magnesium 1.7 Total Bilirubin AST ALT Alkaline Phosphata se Troponin T Baselin e Troponin T 120 Min [place] Troponin T Troponin T Hi Sens 6Hr Troponin T Hi Sens 6Hr [place] Total Protein Albumin Globulin Urine Color Urine Appearance Urine pH Ur Specific Gravit y Urine Protein Urine Glucose (UA) Urine Ketones Urine Blood Urine Nitrate Urine Bilirubin Urine Urobilinogen Ur Leukocyte Joyce ase Urine RBC Urine WBC Ur Squamous Epith Cells Amorphous Sediment Urine Bacteria Blood Type Rho(D) Type Antibody Screen Crossmatch 12/09/19 12/09/19 12/09/19 11:35 16:34 20:28 WBC RBC Hgb Hct MCV MCH MCHC RDW Plt Count MPV Neut % (Auto) Lymph % (Auto) [place] % (Auto) Eos % (Auto) Baso % (Auto) Neut # (Auto) Lymph # (Auto) [place] # (Auto) Eos # (Auto) Baso # (Auto) Nucleated RBC % (a uto) Nucleated RBCs # PT INR APTT Sodium Potassium Chloride Carbon Dioxide Anion Gap BUN Creatinine GFR Calculation Glucose POC Glucose 278 210 237 Estimat Average Gl ucose Hemoglobin A1c Calculated Osmolal ity Calcium Phosphorus Magnesium Total Bilirubin AST ALT Alkaline Phosphata se Troponin T Baselin e Troponin T 120 Min [place] Troponin T Troponin T Hi Sens 6Hr Troponin T Hi Sens 6Hr [place] Total Protein Albumin Globulin Urine Color Urine Appearance Urine pH Ur Specific Gravit y Urine Protein Urine Glucose (UA) Urine Ketones Urine Blood Urine Nitrate Urine Bilirubin Urine Urobilinogen Ur Leukocyte Joyce ase Urine RBC Urine WBC Ur Squamous Epith Cells Amorphous Sediment Urine Bacteria Blood Type Rho(D) Type Antibody Screen Crossmatch 12/10/19 12/10/19 03:54 06:39 WBC RBC Hgb Hct MCV MCH MCHC RDW Plt Count MPV Neut % (Auto) Lymph % (Auto) [place] % (Auto) Eos % (Auto) Baso % (Auto) Neut # (Auto) Lymph # (Auto) [place] # (Auto) Eos # (Auto) Baso # (Auto) Nucleated RBC % (a uto) Nucleated RBCs # PT INR APTT Sodium Potassium Chloride Carbon Dioxide Anion Gap BUN Creatinine GFR Calculation Glucose POC Glucose 228 Estimat Average Gl ucose Hemoglobin A1c Calculated Osmolal ity Calcium Phosphorus 2.3 L Magnesium 1.6 L Total Bilirubin AST ALT Alkaline Phosphata se Troponin T Baselin e Troponin T 120 Min [place] Troponin T Troponin T Hi Sens 6Hr Troponin T Hi Sens 6Hr [place] Total Protein Albumin Globulin Urine Color Urine Appearance Urine pH Ur Specific Gravit y Urine Protein Urine Glucose (UA) Urine Ketones Urine Blood Urine Nitrate Urine Bilirubin Urine Urobilinogen Ur Leukocyte Joyce ase Urine RBC Urine WBC Ur Squamous Epith Cells Amorphous Sediment Urine Bacteria Blood Type Rho(D) Type Antibody Screen Crossmatch Vitals: Temperature 98.5 F 12/10/19 04:00 Temperature Source Oral 12/10/19 04:00 Pulse Rate 66 12/10/19 04:00 Pulse Rhythm 12/09/19 20:00 Pulse Strength 3+ Normal 12/09/19 20:00 Respiratory Rate 17 12/10/19 04:00 Respiratory Effort Non-Labored 12/09/19 20:00 Respiratory Depth Normal 12/09/19 20:00 Respiratory Patter n 12/09/19 20:00 Blood Pressure 142/78 12/10/19 04:00 Blood Pressure Deborah n 99 12/10/19 04:00 Blood Pressure Pos ition Semi Fowlers 12/10/19 04:00 Pulse Oximetry 96 12/10/19 04:00 Oxygen Delivery Me thod 12/10/19 04:00 Sepsis Recent Feve r Within 48 Hours No 12/08/19 12:18 Sepsis New/Unexpla ined Change in Men felicity Status No 12/08/19 12:18 Cardiac Studies: No Data to Display
[2019-12-10] MEDS: sodium chloride 0.9% 1,000 ML 30 ML IV (07:49)
--- NOTE | 2019-12-10 07:51 | P.ANESASSM_ITS ---
Pre-Anesthetic Assessment Pre-Anesthetic Assessment: Height/Weight: Height 1.78 m Weight 99.79 kg Temp Pulse Resp BP Pulse Ox 97.6 F 79 18 144/75 98 12/10/19 07:47 12/10/19 07:47 12/10/19 07:47 12/10/19 07:47 12/10/19 07:47 Preop Diagnosis: GI bleed Proposed Procedure: Operation Date: 12/10/19 08:00 Proposed Procedures p EGD(Not Applicable) - Dean Villalobos MD Was Beta Pedrito taken within 24 hours: Yes Last intake: Intake Last Liquid Date 12/09/19 Last Liquid Time 23:00 Last Solid Date 12/08/19 Last Solid Time 17:00 Social: Social History: No alcohol and No tobacco Exam: Pre-Anes Outpt Exam: alert, oriented x 3, clear to auscultation bilaterally and regular rate & rhythm Airway: Submandibular: WNL Cervical ROM: WNL MP: 2 Dentition: Full History/ROS: No significant history except as noted and No significant complaints Pulmonary: Pulmonary: None reported CV/HEM: CV/HEM: HTN : : None reported Hepatic: Hepatic: None reported GI: GI: GERD Metabolic: Metabolic: DM, Morbid obesity and Thyroid Musc/skel: Musc/skel: None reported Neuropsych: Neuropsych: Dementia Anesthetic Plan: ASA status: 3 Anesthesia: Anesthesia Evaluation and MAC Risk of > 500 ml blood loss (7ml/kg in children): No Meds/Allergies Current Medications: Current Medications Generic Name Dose Route Start Last Admin Trade Name Freq PRN Reason Stop Dose Admin Acetaminophen 1,000 mg 12/08/19 17:15 12/09/19 14:38 Tylenol PO 1,000 mg PRN SEGUN Administration Amlodipine Besylat e 5 mg 12/08/19 18:00 12/09/19 17:19 Norvasc PO 5 mg BID SEGUN Administration Atorvastatin Calci um 20 mg 12/09/19 09:00 12/09/19 08:33 Lipitor PO 20 mg DAILY SEGUN Administration Ceftriaxone Sodium 1,000 mg/ 50 mls @ 100 mls/ hr 12/08/19 17:30 12/09/19 17:18 Sodium Chloride IV 100 mls/hr Q24H SEGUN Administration Protocol Sodium Chloride 1,000 mls @ 75 ml s/hr 12/08/19 17:30 12/09/19 20:18 Sodium Chloride 0.9% IV 75 mls/hr .[id number] SEGUN Administration Sodium Chloride 1,000 mls @ 30 ml s/hr 12/10/19 07:20 12/10/19 07:49 Sodium Chloride 0.9% IV 12/11/19 07:19 30 mls/hr .Q24H ONE Administration Insulin Aspart 0 unit 12/08/19 18:00 12/09/19 20:44 Novolog SUBCUT 8 unit WM&BEDTIME SEGUN Administration Protocol Levothyroxine Sodi um 112 mcg 12/09/19 09:00 12/09/19 08:33 Synthroid PO 112 mcg DAILY SEGUN Administration Metoprolol Succina te 400 mg 12/09/19 09:00 12/09/19 08:37 Toprol Xl PO 400 mg DAILY SEGUN Administration Pantoprazole Sodiu m 40 mg 12/08/19 16:06 12/09/19 17:19 Protonix IVP 40 mg ONCE SEGUN Administration Pantoprazole Sodiu m 40 mg 12/08/19 17:30 12/10/19 05:10 Protonix IVP 40 mg Q12H SEGUN Administration PFSH Anesthesia PFSH: Medical History Ankle fracture, left Diabetes mellitus type 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 Social History Smoking and tobacco status: never smoked Alcohol intake: never Data Anesthesia CBC & Chem 7: 12/09/19 03:36 12/09/19 03:36 Other Labs: Laboratory Results - last 48 hr 12/08/19 12/08/19 12/08/19 13:58 13:58 13:58 WBC 13.5 H RBC 2.33 L Hgb 6.1 L* Hct 20.7 L* MCV 88.8 MCH 26.2 L MCHC 29.5 L RDW 13.2 Plt Count 398 MPV 10.0 Neut % (Auto) 77.0 Lymph % (Auto) 16.2 [place] % (Auto) 4.9 Eos % (Auto) 0.3 Baso % (Auto) 0.7 Neut # (Auto) 10.40 H Lymph # (Auto) 2.2 [place] # (Auto) 0.7 Eos # (Auto) 0.0 Baso # (Auto) 0.1 Nucleated RBC % (auto) 0 Nucleated RBCs # 0.0 PT INR APTT Sodium 130 L Potassium 5.1 Chloride 100 Carbon Dioxide 19 L Anion Gap 16.1 BUN 58 H Creatinine 1.4 H GFR Calculation Not Reportable Glucose 268 H POC Glucose Estimat Average Glucose Hemoglobin A1c Calculated Osmolality 278 L Calcium 9.3 Phosphorus Magnesium Total Bilirubin 0.2 AST 16 ALT 14 Alkaline Phosphatase 72 Troponin T Baseline 53 H Troponin T 120 Minute Delta Troponin T Troponin T Hi Sens 6Hr Troponin T Hi Sens 6Hr Delta Total Protein 6.1 L Albumin 3.4 L Globulin 2.7 Urine Color Urine Appearance Urine pH Ur Specific [place] Urine Protein Urine Glucose (UA) Urine Ketones Urine Blood Urine Nitrate Urine Bilirubin Urine Urobilinogen Ur Leukocyte Esterase Urine RBC Urine WBC Ur Squamous Epith Cells Amorphous Sediment Urine Bacteria Blood Type Rho(D) Type Antibody Screen Crossmatch 12/08/19 12/08/19 12/08/19 14:56 15:40 15:40 WBC RBC Hgb Hct MCV MCH MCHC RDW Plt Count MPV Neut % (Auto) Lymph % (Auto) [place] % (Auto) Eos % (Auto) Baso % (Auto) Neut # (Auto) Lymph # (Auto) [place] # (Auto) Eos # (Auto) Baso # (Auto) Nucleated RBC % (auto) Nucleated RBCs # PT INR APTT Sodium Potassium Chloride Carbon Dioxide Anion Gap BUN Creatinine GFR Calculation Glucose POC Glucose Estimat Average Glucose Hemoglobin A1c Calculated Osmolality Calcium Phosphorus Magnesium Total Bilirubin AST ALT Alkaline Phosphatase Troponin T Baseline Troponin T 120 Minute 54.99 H Delta Troponin T 1.99 Troponin T Hi Sens 6Hr Troponin T Hi Sens 6Hr Delta Total Protein Albumin Globulin Urine Color Yellow Urine Appearance Hazy A Urine pH 5 Ur Specific [place] 1.015 Urine Protein 1+ H Urine Glucose (UA) 1+ Urine Ketones Negative Urine Blood Neg Urine Nitrate Negative Urine Bilirubin Neg Urine Urobilinogen Neg Ur Leukocyte Esterase Negative Urine RBC None Urine WBC 5-10 H Ur Squamous Epith Cells 0-4 H Amorphous Sediment Not Reportable Urine Bacteria 3+ H Blood Type O Positive Rho(D) Type Positive Antibody Screen Negative Crossmatch See Detail 12/08/19 12/08/19 12/08/19 17:54 20:51 21:25 WBC RBC Hgb Hct MCV MCH MCHC RDW Plt Count MPV Neut % (Auto) Lymph % (Auto) [place] % (Auto) Eos % (Auto) Baso % (Auto) Neut # (Auto) Lymph # (Auto) [place] # (Auto) Eos # (Auto) Baso # (Auto) Nucleated RBC % (auto) Nucleated RBCs # PT INR APTT Sodium Potassium Chloride Carbon Dioxide Anion Gap BUN Creatinine GFR Calculation Glucose POC Glucose 251 170 Estimat Average Glucose Hemoglobin A1c Calculated Osmolality Calcium Phosphorus Magnesium Total Bilirubin AST ALT Alkaline Phosphatase Troponin T Baseline Troponin T 120 Minute Delta Troponin T Troponin T Hi Sens 6Hr 60.90 H Troponin T Hi Sens 6Hr Delta 7.90 Total Protein Albumin Globulin Urine Color Urine Appearance Urine pH Ur Specific [place] Urine Protein Urine Glucose (UA) Urine Ketones Urine Blood Urine Nitrate Urine Bilirubin Urine Urobilinogen Ur Leukocyte Esterase Urine RBC Urine WBC Ur Squamous Epith Cells Amorphous Sediment Urine Bacteria Blood Type Rho(D) Type Antibody Screen Crossmatch 12/09/19 12/09/19 12/09/19 03:36 03:36 03:36 WBC 12.5 H RBC 2.63 L Hgb 7.4 L Hct 23.6 L MCV 89.7 MCH 28.1 MCHC 31.4 D RDW 14.6 Plt Count 344 MPV 9.7 Neut % (Auto) 68.1 Lymph % (Auto) 21.1 [place] % (Auto) 7.4 Eos % (Auto) 1.9 Baso % (Auto) 0.9 Neut # (Auto) 8.54 H Lymph # (Auto) 2.6 [place] # (Auto) 0.9 Eos # (Auto) 0.2 Baso # (Auto) 0.1 Nucleated RBC % (auto) 0 Nucleated RBCs # 0.0 PT 15.60 H INR 1.20 APTT 32.1 Sodium 137 Potassium 4.7 Chloride 108 H Carbon Dioxide 21 L Anion Gap 12.7 BUN 44 H Creatinine 1.4 H GFR Calculation Not Reportable Glucose 155 H POC Glucose Estimat Average Glucose Hemoglobin A1c Calculated Osmolality 285 Calcium 9.8 Phosphorus Magnesium Total Bilirubin 0.2 AST 14 ALT 11 Alkaline Phosphatase 65 Troponin T Baseline Troponin T 120 Minute Delta Troponin T Troponin T Hi Sens 6Hr Troponin T Hi Sens 6Hr Delta Total Protein 5.0 L Albumin 3.0 L Globulin 2.0 Urine Color Urine Appearance Urine pH Ur Specific [place] Urine Protein Urine Glucose (UA) Urine Ketones Urine Blood Urine Nitrate Urine Bilirubin Urine Urobilinogen Ur Leukocyte Esterase Urine RBC Urine WBC Ur Squamous Epith Cells Amorphous Sediment Urine Bacteria Blood Type Rho(D) Type Antibody Screen Crossmatch 12/09/19 12/09/19 12/09/19 03:36 03:36 06:50 WBC RBC Hgb Hct MCV MCH MCHC RDW Plt Count MPV Neut % (Auto) Lymph % (Auto) [place] % (Auto) Eos % (Auto) Baso % (Auto) Neut # (Auto) Lymph # (Auto) [place] # (Auto) Eos # (Auto) Baso # (Auto) Nucleated RBC % (auto) Nucleated RBCs # PT INR APTT Sodium Potassium Chloride Carbon Dioxide Anion Gap BUN Creatinine GFR Calculation Glucose POC Glucose 177 Estimat Average Glucose 160 Hemoglobin A1c 7.2 H Calculated Osmolality Calcium Phosphorus 2.6 Magnesium 1.7 Total Bilirubin AST ALT Alkaline Phosphatase Troponin T Baseline Troponin T 120 Minute Delta Troponin T Troponin T Hi Sens 6Hr Troponin T Hi Sens 6Hr Delta Total Protein Albumin Globulin Urine Color Urine Appearance Urine pH Ur Specific [place] Urine Protein Urine Glucose (UA) Urine Ketones Urine Blood Urine Nitrate Urine Bilirubin Urine Urobilinogen Ur Leukocyte Esterase Urine RBC Urine WBC Ur Squamous Epith Cells Amorphous Sediment Urine Bacteria Blood Type Rho(D) Type Antibody Screen Crossmatch 12/09/19 12/09/19 12/09/19 11:35 16:34 20:28 WBC RBC Hgb Hct MCV MCH MCHC RDW Plt Count MPV Neut % (Auto) Lymph % (Auto) [place] % (Auto) Eos % (Auto) Baso % (Auto) Neut # (Auto) Lymph # (Auto) [place] # (Auto) Eos # (Auto) Baso # (Auto) Nucleated RBC % (auto) Nucleated RBCs # PT INR APTT Sodium Potassium Chloride Carbon Dioxide Anion Gap BUN Creatinine GFR Calculation Glucose POC Glucose 278 210 237 Estimat Average Glucose Hemoglobin A1c Calculated Osmolality Calcium Phosphorus Magnesium Total Bilirubin AST ALT Alkaline Phosphatase Troponin T Baseline Troponin T 120 Minute Delta Troponin T Troponin T Hi Sens 6Hr Troponin T Hi Sens 6Hr Delta Total Protein Albumin Globulin Urine Color Urine Appearance Urine pH Ur Specific [place] Urine Protein Urine Glucose (UA) Urine Ketones Urine Blood Urine Nitrate Urine Bilirubin Urine Urobilinogen Ur Leukocyte Esterase Urine RBC Urine WBC Ur Squamous Epith Cells Amorphous Sediment Urine Bacteria Blood Type Rho(D) Type Antibody Screen Crossmatch 12/10/19 12/10/19 03:54 06:39 WBC RBC Hgb Hct MCV MCH MCHC RDW Plt Count MPV Neut % (Auto) Lymph % (Auto) [place] % (Auto) Eos % (Auto) Baso % (Auto) Neut # (Auto) Lymph # (Auto) [place] # (Auto) Eos # (Auto) Baso # (Auto) Nucleated RBC % (auto) Nucleated RBCs # PT INR APTT Sodium Potassium Chloride Carbon Dioxide Anion Gap BUN Creatinine GFR Calculation Glucose POC Glucose 228 Estimat Average Glucose Hemoglobin A1c Calculated Osmolality Calcium Phosphorus 2.3 L Magnesium 1.6 L Total Bilirubin AST ALT Alkaline Phosphatase Troponin T Baseline Troponin T 120 Minute Delta Troponin T Troponin T Hi Sens 6Hr Troponin T Hi Sens 6Hr Delta Total Protein Albumin Globulin Urine Color Urine Appearance Urine pH Ur Specific [place] Urine Protein Urine Glucose (UA) Urine Ketones Urine Blood Urine Nitrate Urine Bilirubin Urine Urobilinogen Ur Leukocyte Esterase Urine RBC Urine WBC Ur Squamous Epith Cells Amorphous Sediment Urine Bacteria Blood Type Rho(D) Type Antibody Screen Crossmatch Micro: Microbiology 12/09/19 14:40 Occult Blood (FIT) - Final Stool Routine Collection 12/08/19 14:56 Urine Culture - Preliminary Urine,Clean Catch Gram Negative Rods Cardiac Studies: No Data to Display
[2019-12-10] MEDS: EPINEPHrine 1 mg/mL INJ SUBCUT ×2 (08:21→08:26)
--- NOTE | 2019-12-10 08:31 | SUR.OPER ---
0810 Epinephrine 1.2 mg total injected into duodenal ulcer.
--- NOTE | 2019-12-10 08:52 | PC.NURSE ---
Patient returned from GI lab at this time.
[2019-12-10] MEDS: atorvastatin 40 mg Tablet 20 MG PO (09:02)
[2019-12-10] MEDS: metoprolol succinate ER (24 HR) 100 mg Tablet 400 MG PO (09:02)
[2019-12-10] MEDS: levothyroxine 112 mcg Tablet PO (09:02)
[2019-12-10] MEDS: amlodipine 5 mg Tablet PO ×2 (09:02→17:22)
[2019-12-10] MEDS: sucralfate 1 gm/10 mL Oral Liq UDC PO ×3 (09:02→19:46)
--- NOTE | 2019-12-10 09:51 | P.PN_ITS ---
Subjective Subjective: Interval history: Patient undergone uneventful diagnostic EGD and therapeutic were large ulcer was found in the bulb of the duodenum that was injected with epinephrine. Vitals/I&O/Wt Last Vital Signs Temp 97.6 F 12/10/19 08:13 Pulse 68 12/10/19 08:36 Resp 18 12/10/19 08:36 BP 143/60 12/10/19 08:36 Pulse Ox 100 12/10/19 08:36 12/09/19 12/10/19 12/10/19 22:59 06:59 14:59 Intake Total 1221.25 / 2341.25 0 / 2341.25 800 / 800 Output Total 800 / 1400 900 / 2300 0 / 0 Balance 421.25 / 941.25 -900 / 41.25 800 / 800 Weight last 48 hrs Weight 220 lb Physical Exam Narrative: EXAM NARRATIVE: Patient is conscious alert oriented X3 BMI 32 Head and neck examination PERRLA no masses no cervical lymphadenopathy no jaundice Abdomen nontender nondistended soft no organomegaly guarding or rigidity/no signs of peritonitis Obese Data : 12/09/19 03:36 12/09/19 03:36 Micro: Microbiology 12/08/19 14:56 Urine Culture - Preliminary Urine,Clean Catch Gram Negative Rods 12/09/19 14:40 Occult Blood (FIT) - Final Stool Routine Collection A&P Assessment and plan (1) Duodenal ulcer: Raise the head of the bed 4-6 inches Frequent small meals through the day Avoid smoking or Chewing Tobacco Avoid excess coffee, tea, and other caffeinated beverages Avoid garments that fit tightly through the abdomen Avoid eating before going to sleep Avoid nonsteroidal anti-inflammatory drugs (NSAIDs) when possible Anti-reflux diet Anti-reflux medications as prescribed Emphasis on weight management Carafate 1 g every 6 hours Patient will require repeat diagnostic EGD in 4 to 6 weeks Shall the patient encounter signs and symptoms of bleeding she may require angioembolization I did discuss and updated Ms. Naima Ramos the patient's daughter on [phone] on patient's condition and expectations Assurance and education All questions have been answered and all concerns have been addressed to patient's satisfaction. Status: Acute Attestations Medical Necessity Statement*: Per hospitalist service Coding Level of Care Code Acute Specification Manager for [facility] Fwd Diagnoses Duodenal ulcer K26.9
[2019-12-10 10:40] LABS: Glucose Point of Care 303 mg/dL (70-110)
--- NOTE | 2019-12-10 11:18 | PM.PN ---
Subjective Subjective: Interval history: Patient had EGD performed this morning showing large ulcer in the bulb of the duodenum that was injected with epinephrine. Patient continues to have melanotic stools yesterday and this morning. Denies shortness of breath or chest pain. Continues to have minimal epigastric discomfort. Vitals/I&O/Wt Last Vital Signs Temp 97.9 F 12/10/19 10:54 Pulse 61 12/10/19 10:54 Resp 16 12/10/19 10:54 BP 147/67 12/10/19 10:54 Pulse Ox 97 12/10/19 10:54 12/09/19 12/10/19 12/10/19 22:59 06:59 14:59 Intake Total 1221.25 / 2341.25 0 / 2341.25 1300 / 1300 Output Total 800 / 1400 900 / 2300 200 / 200 Balance 421.25 / 941.25 -900 / 41.25 1100 / 1100 Weight last 48 hrs Weight 99.79 kg Physical Exam Const: COMMON NORMALS: no acute distress and patient oriented x3 Resp: COMMON NORMALS: normal respiratory effort and clear to auscultation bilaterally AUSCULTATION: clear to auscultation bilaterally Cardio: COMMON NORMALS: regular rate, regular rhythm and S2 normal heart sound present RATE: regular rate RHYTHM: regular rhythm HEART SOUNDS: S2 normal heart sound present OTHER: No lower extremity edema GI: COMMON NORMALS: Normal to inspection, nondistended, normoactive bowel sounds present and Soft to palpation PALPATION: Yes Soft to palpation OTHER: Slight epigastric area tenderness. Neuro: COMMON NORMALS: patient oriented x3 and no focal motor deficits Data : 12/09/19 03:36 12/09/19 03:36 Micro: Microbiology 12/08/19 14:56 Urine Culture - Preliminary Urine,Clean Catch Gram Negative Rods 12/09/19 14:40 Occult Blood (FIT) - Final Stool Routine Collection A&P Assessment and plan (1) Hypertension: Status: Acute (2) Acute blood loss anemia: Status: Acute (3) Upper GI bleed: Status: Acute (4) Urinary tract infection: Status: Acute (5) Acute kidney injury: Prerenal. Likely second to dehydration and GI bleed. Status: Acute (6) Dyslipidemia: Status: Acute (7) Hypothyroidism: Status: Acute (8) Diabetes mellitus type 2 in obese: Status: Acute (9) Mild dementia: Status: Acute (10) Dehydration with hyponatremia: Status: Acute Additional A&P Information PLAN: Continue IV hydration and clear liquid diet. Awaiting labs. Patient clinically appears to be improving but still at risk for significant GI bleed and if that happens Dr. Villalobos recommends artery embolization procedure. Attestations Medical Necessity Statement*: Patient with GI bleed requires close inpatient monitoring and treatment until deemed safe for discharge. Time Spent in Patient Care: 16 - 35 minutes Coding Level of Care Code Acute Financial Analyst Accountant for g Fwd Diagnoses Hypertension I10 Acute blood loss anemia D62 Upper GI bleed K92.2 Urinary tract infection N39.0 Acute kidney injury N17.9 Dyslipidemia E78.5 Hypothyroidism E03.9 Diabetes mellitus type 2 in obese E11.69; E66.9 Mild dementia F03.90 Dehydration with hyponatremia E86.0; E87.1
[2019-12-10 11:28] LABS: Basophils # 0.1 10^3/uL (0.0-0.1); Eosinophils # 0.4 10^3/uL (0.0-0.8); Eosinophils % 3.5 %; Lymphocytes # 3.2 10^3/uL (0.8-4.8); Lymphocytes % 29.7 %; Mean Corpuscular HGB Conc 30.7 g/dL (30.0-36.0); Mean Corpuscular Hemoglobin 28.1 pg (28.0-34.0); Mean Corpuscular Volume 91.4 fL (81-99); Mean Platelet Volume 10.1 fL (7.4-10.4); Monocytes # 0.8 10^3/uL (0.2-0.9); Monocytes % 7.5 %; Neutrophils % 57.5 %; Nucleated Red Blood Cells % 0.2 %; Platelet Count 360 10^3/cmm (130-400); Red Blood Count 2.21 10^6/uL (4.1-5.3); White Blood Count 10.6 10^3/uL (4.0-10.0)
[2019-12-10 11:37] LABS: Hematocrit 20.2 % (37.0-47.0); Hemoglobin 6.2 g/dL (11.5-15.3)
[2019-12-10 11:44] LABS: Alanine Aminotransferase 13 U/L (0-33); Albumin Level 2.9 g/dL (3.5-5.2); Alkaline Phosphatase 57 IU/L (35-105); Anion Gap 12.4 (5-19); Aspartate Amino Transferase 13 U/L (0-32); Blood Urea Nitrogen 33 mg/dL (8-23); Calcium 9.1 mg/dL (8.5-10.5); Carbon Dioxide 19 mmol/L (22-29); Chloride 108 mmol/L (98-107); Globulin 2.5 g/dL (1.3-4.6); Glucose 142 mg/dL (65-115); Osmolality Calculated 280 mOsm/kg (285-295); Potassium 4.4 mmol/L (3.5-5.1); Sodium 135 mmol/L (136-145); Total Bilirubin 0.2 mg/dL (0.15-1.2); Total Protein 5.4 g/dL (6.6-8.7)
--- NOTE | 2019-12-10 12:23 | PC.CHAP ---
Pastoral Care Encounter/Spiritual Assessment Type of Contact [] Declined collection systems administrator visit [] Patient/Family/Request visit [] Outpatient visit [] Follow-up visit [] Physician referral [] Code/Alert [] Routine visit [] Staff referral [] Actively dying [] Patient sleeping [] Family support [] [] Out of room [] Palliative care [] [X] Receiving care in room [] Pre-surgical visit [] Trauma [] Long length of stay [] ICU visit [] Other: Relational/Emotional Strength [] Patient feels connected with others/family/visitors/staff [] Distress [] Loneliness/isolation [] Abandonment Spirituality of Patient [] Person of Darshana [] Attends Mandaen of their Darshana [] Believes in Prayer [] Reads Bible or Yarsani materials [] There are Spiritual issues to be addressed Head Holder Interventions [] Prayer [] Active listening [] Non-anxious presence [] Spiritual/emotional support [] Crisis/trauma care [] Spiritual counseling [] Bereavement support [] Provided bereavement packet [] Provided Bible/devotional materials [] Provided toy/stuffed animal, coloring book to patient or family member [] Provided Communion [] Anointing/[place] [] Salvation [] Completed spiritual assessment [] Other: Impact on Illness or Injury [] Angry [] Fearful [] Anxious [] Often cries [] Exhaustion [] Unable to work [] Unable to attend mormon [] Unable to walk/stand [] Unable to read [] Unable to drive [] Unable to eat/drink [] Unable to sleep [] Unable to be with family [] Patient intubated [] Other: Summary Time spent with patient
[2019-12-10] MEDS: sodium chloride 0.9% 1,000 ML 75 ML IV ×2 (13:58→19:46)
[2019-12-10] MEDS: acetaminophen 500 mg Tablet 1000 MG PO (15:18)
[2019-12-10 16:46] LABS: Glucose Point of Care 102 mg/dL (70-110)
[2019-12-10] MEDS: cefTRIAXone 1,000 MG in sodium chloride 0.9% (plus) 50 ML 100 MG IV (17:22)
--- NOTE | 2019-12-10 17:37 | PC.NURSE ---
Called blood bank to see if blood is ready and it is not. Blood bank will call when it is
--- NOTE | 2019-12-10 18:04 | PC.NURSE ---
Contacted blood bank at this time and blood is still not available.
--- NOTE | 2019-12-10 18:40 | PC.NURSE ---
First unit of blood started. Patient is A&Ox3. Respirations even and non-labored on room air. No obvious signs of distress noted.
--- NOTE | 2019-12-10 18:50 | PC.NURSE ---
End of shift report. Patient over all had a good day. Patient had a scope this am which revealed a ulcer. Patient hemoglobin dropped again and she will receive 2 units of blood tonight. Patient is having black tarry stools. She had two large BMs today. Patient's grandson visited her today. Patient is A&Ox3. Respirations even and non-labored on room air. Patient has been afebrile.
[2019-12-10 19:40] LABS: Glucose Point of Care 153 mg/dL (70-110)
[2019-12-11] VITALS (9 sets, daily range): BP systolic 115–168; BP diastolic 63–81; PULSE 63–71; RESP 16–20; TEMP 36.3–37.8; O2SAT 95–99
[2019-12-11] MEDS: sodium chloride 0.9% (100 ml) 100 ML 125 ML (01:39)
[2019-12-11] MEDS: sucralfate 1 gm/10 mL Oral Liq UDC PO ×4 (01:39→21:36)
[2019-12-11 05:01] LABS: Alanine Aminotransferase 13 U/L (0-33); Albumin Level 3.1 g/dL (3.5-5.2); Alkaline Phosphatase 72 IU/L (35-105); Aspartate Amino Transferase 15 U/L (0-32); Blood Urea Nitrogen 17 mg/dL (8-23); Calcium 9.6 mg/dL (8.5-10.5); Carbon Dioxide 20 mmol/L (22-29); Chloride 111 mmol/L (98-107); Glucose 170 mg/dL (65-115); Osmolality Calculated 288 mOsm/kg (285-295); Sodium 139 mmol/L (136-145); Total Bilirubin 0.3 mg/dL (0.15-1.2); Total Protein 5.1 g/dL (6.6-8.7)
[2019-12-11 05:02] LABS: Anion Gap 12.5 (5-19); Potassium 4.5 mmol/L (3.5-5.1)
[2019-12-11] MEDS: pantoprazole 40 mg SDV IVP ×3 (05:19→17:31)
[2019-12-11 05:51] LABS: Magnesium 1.6 mg/dL (1.7-2.3); Phosphorus 2.4 mg/dL (2.5-4.5)
[2019-12-11 06:22] LABS: Glucose Point of Care 197 mg/dL (70-110)
[2019-12-11 06:48] LABS: Basophils # 0.1 10^3/uL (0.0-0.1); Basophils % 0.9 %; Eosinophils # 0.3 10^3/uL (0.0-0.8); Eosinophils % 2.5 %; Hematocrit 27.4 % (37.0-47.0); Hemoglobin 8.6 g/dL (11.5-15.3); Lymphocytes # 2.1 10^3/uL (0.8-4.8); Lymphocytes % 15.8 %; Mean Corpuscular HGB Conc 31.4 g/dL (30.0-36.0); Mean Corpuscular Hemoglobin 27.8 pg (28.0-34.0); Mean Corpuscular Volume 88.7 fL (81-99); Mean Platelet Volume 9.4 fL (7.4-10.4); Monocytes % 7.1 %; Neutrophils # 9.84 10^3/uL (1.8-7.7); Neutrophils % 73.1 %; Nucleated Red Blood Cells % 0 %; Platelet Count 362 10^3/cmm (130-400); Red Blood Count 3.09 10^6/uL (4.1-5.3); Red Cell Distribution Width 15.4 % (12.1-15.1); White Blood Count 13.5 10^3/uL (4.0-10.0)
[2019-12-11] MEDS: metoprolol succinate ER (24 HR) 100 mg Tablet 400 MG PO (07:55)
[2019-12-11] MEDS: levothyroxine 112 mcg Tablet PO (07:57)
[2019-12-11] MEDS: amlodipine 5 mg Tablet PO ×2 (07:59→17:13)
[2019-12-11] MEDS: atorvastatin 40 mg Tablet 20 MG PO (07:59)
[2019-12-11] MEDS: magnesium sulfate premix 2 GM/50 ML PIGGYBACK IV (08:00)
[2019-12-11 08:45] LABS: Glucose Point of Care 210 mg/dL (70-110)
--- NOTE | 2019-12-11 10:00 | PC.SOCIAL ---
Pg 2 IMM Explained to pt Pg 2 IMM. Provided pt a copy. No questions voiced. Signed, dated, & timed a copy & placed in chart.
[2019-12-11 10:51] LABS: Glucose Point of Care 241 mg/dL (70-110)
--- NOTE | 2019-12-11 11:22 | PC.NURSE ---
Spoke with Naima Ramos daughter in law of pt. informed her of pt status that the wants to continue to monitor pt. hemoglobin levels to ensure they stabilize AG
--- NOTE | 2019-12-11 11:28 | PM.PN ---
Subjective Subjective: Interval history: Patient's hemoglobin drop down below 7 yesterday and she received 2 units of blood with appropriate response to 8.4 this morning. She denies shortness of breath or chest pain. She had no bowel movement today. Her BUN normalized. This morning patient denies abdominal pain and her epigastric area tenderness much improved. White blood cell count increased today and urine culture is back with Serratia Vitals/I&O/Wt Last Vital Signs Temp 97.4 F L 12/11/19 11:11 Pulse 63 12/11/19 11:11 Resp 18 12/11/19 11:11 BP 153/63 12/11/19 11:11 Pulse Ox 98 12/11/19 11:11 12/10/19 12/11/19 12/11/19 22:59 06:59 14:59 Intake Total 1145 / 3865 350 / 4215 Output Total 750 / 950 200 / 1150 Balance 395 / 2915 150 / 3065 Physical Exam Const: COMMON NORMALS: no acute distress and patient oriented x3 Resp: COMMON NORMALS: normal respiratory effort and clear to auscultation bilaterally AUSCULTATION: clear to auscultation bilaterally Cardio: COMMON NORMALS: regular rate, regular rhythm and S2 normal heart sound present RATE: regular rate RHYTHM: regular rhythm HEART SOUNDS: S2 normal heart sound present OTHER: No lower extremity edema GI: COMMON NORMALS: Normal to inspection, nondistended, normoactive bowel sounds present and Soft to palpation PALPATION: Yes Soft to palpation and Yes Tenderness to palpation present (GI) (Minimally) Neuro: COMMON NORMALS: patient oriented x3 and no focal motor deficits Data : 12/11/19 06:37 12/11/19 04:24 Micro: Microbiology 12/08/19 14:56 Urine Culture - Final Urine,Clean Catch Serratia marcescens A&P Assessment and plan (1) Hypertension: Status: Acute (2) Acute blood loss anemia: Status: Acute (3) Upper GI bleed: Status: Acute (4) Urinary tract infection: Due to Serratia Marcescens Status: Acute (5) Acute kidney injury: Prerenal. Likely second to dehydration and GI bleed. Status: Acute (6) Dyslipidemia: Status: Acute (7) Hypothyroidism: Status: Acute (8) Diabetes mellitus type 2 in obese: Status: Acute (9) Mild dementia: Status: Acute (10) Dehydration with hyponatremia: Status: Acute Additional A&P Information PLAN: We will continue gentle IV hydration and clear liquid diet. Discontinue ceftriaxone and start patient on Levaquin. Physical therapy. We will monitor for another day or 2 to make sure patient does not rebleed and hemoglobin remained stable given her high risk condition. Should patient rebleed or hemoglobin continues to drop we will have to transfer patient for embolization procedure Attestations Medical Necessity Statement*: Patient with severe GI bleed and large ulcer requires close inpatient monitoring and treatment until deemed safe for discharge. Time Spent in Patient Care: 16 - 35 minutes Coding Level of Care Code Acute Debone Processing Supervisor for g Fwd Diagnoses Hypertension I10 Acute blood loss anemia D62 Upper GI bleed K92.2 Urinary tract infection N39.0 Acute kidney injury N17.9 Dyslipidemia E78.5 Hypothyroidism E03.9 Diabetes mellitus type 2 in obese E11.69; E66.9 Mild dementia F03.90 Dehydration with hyponatremia E86.0; E87.1
[2019-12-11] MEDS: sodium chloride 0.9% 1,000 ML 75 ML IV (11:39)
[2019-12-11] MEDS: levofloxacin-dextrose 5 % 750 MG/150 ML PREMIX 100 MG IV (11:52)
--- NOTE | 2019-12-11 14:10 | PC.RESP ---
PATIENT DOES NOT HAVE A QUALIFYING HX OF LUNG DISEASE AND DOES NOT QUALIFY FOR PULMONARY REHAB AT THIS TIME.
[2019-12-11] MEDS: cefTAZidime 1,000 MG in sodium chloride 0.9% (plus) 50 ML 150 MG IV (14:24)
--- NOTE | 2019-12-11 15:38 | PC.RESP ---
PATIENT DOES NOT HAVE A QUALIFYING HX OF LUNG DISEASE AND DOES NOT QUALIFY FOR PULMONARY REHAB AT THIS TIME.
[2019-12-11 17:22] LABS: Glucose Point of Care 172 mg/dL (70-110)
[2019-12-11 20:36] LABS: Glucose Point of Care 180 mg/dL (70-110)
[2019-12-12] VITALS: BP 152/76; PULSE 65; RESP 18; TEMP 37.2; O2SAT 95
[2019-12-12] MEDS: sodium chloride 0.9% 1,000 ML 75 ML IV (02:09)
[2019-12-12] MEDS: cefTAZidime 1,000 MG in sodium chloride 0.9% (plus) 50 ML 150 MG IV ×2 (02:09→13:39)
[2019-12-12] MEDS: sucralfate 1 gm/10 mL Oral Liq UDC PO ×4 (02:09→22:17)
[2019-12-12 04:00] VITALS: BP 171/73; PULSE 65; RESP 16; TEMP 37; O2SAT 96
[2019-12-12 06:08] LABS: Basophils # 0.1 10^3/uL (0.0-0.1); Basophils % 0.9 %; Eosinophils # 0.3 10^3/uL (0.0-0.8); Hemoglobin 8.5 g/dL (11.5-15.3); Lymphocytes # 2.2 10^3/uL (0.8-4.8); Lymphocytes % 18.8 %; Mean Corpuscular HGB Conc 31.5 g/dL (30.0-36.0); Mean Corpuscular Hemoglobin 28.3 pg (28.0-34.0); Mean Platelet Volume 9.4 fL (7.4-10.4); Monocytes # 0.9 10^3/uL (0.2-0.9); Monocytes % 7.5 %; Neutrophils # 7.92 10^3/uL (1.8-7.7); Nucleated Red Blood Cells % 0 %; Platelet Count 397 10^3/cmm (130-400); Red Cell Distribution Width 15.8 % (12.1-15.1); White Blood Count 11.5 10^3/uL (4.0-10.0)
[2019-12-12] MEDS: pantoprazole 40 mg SDV IVP ×4 (06:16→17:24)
[2019-12-12 06:30] LABS: Alanine Aminotransferase 8 U/L (0-33); Albumin Level 2.9 g/dL (3.5-5.2); Alkaline Phosphatase 70 IU/L (35-105); Anion Gap 11.6 (5-19); Aspartate Amino Transferase 8 U/L (0-32); Blood Urea Nitrogen 10 mg/dL (8-23); Calcium 8.8 mg/dL (8.5-10.5); Carbon Dioxide 20 mmol/L (22-29); Chloride 109 mmol/L (98-107); Creatinine Clr Calc Pharmacy 52.6041; Globulin 2.7 g/dL (1.3-4.6); Glucose 163 mg/dL (65-115); Osmolality Calculated 284 mOsm/kg (285-295); Potassium 3.6 mmol/L (3.5-5.1); Sodium 137 mmol/L (136-145); Total Bilirubin 0.3 mg/dL (0.15-1.2); Total Protein 5.6 g/dL (6.6-8.7)
[2019-12-12 06:40] LABS: Glucose Point of Care 160 mg/dL (70-110)
[2019-12-12 08:00] VITALS: BP 154/68; PULSE 73; RESP 18; TEMP 37.2; O2SAT 98
[2019-12-12] MEDS: levothyroxine 112 mcg Tablet PO (08:01)
[2019-12-12] MEDS: amlodipine 5 mg Tablet PO ×2 (08:02→17:13)
[2019-12-12] MEDS: atorvastatin 40 mg Tablet 20 MG PO (08:02)
[2019-12-12] MEDS: metoprolol succinate ER (24 HR) 100 mg Tablet 400 MG PO (08:02)
--- NOTE | 2019-12-12 08:26 | PM.PN ---
Subjective Subjective: Interval history: Patient denies shortness of breath or chest pain. Denies abdominal pain. Her hemoglobin appears to be stable. She did not have any bowel movement since yesterday. She tolerates clear liquid diet well. Denies nausea. WBC improved this morning. Vitals/I&O/Wt Last Vital Signs Temp 99.0 F 12/12/19 08:00 Pulse 73 12/12/19 08:00 Resp 18 12/12/19 08:00 BP 154/68 12/12/19 08:00 Pulse Ox 98 12/12/19 08:00 12/11/19 12/12/19 12/12/19 22:59 06:59 14:59 Intake Total 440 / 2170 1200 / 3370 Output Total 400 / 850 300 / 1150 200 / 200 Balance 40 / 1320 900 / 2220 -200 / -200 Physical Exam Const: COMMON NORMALS: no acute distress and patient oriented x3 Resp: COMMON NORMALS: normal respiratory effort and clear to auscultation bilaterally AUSCULTATION: clear to auscultation bilaterally Cardio: COMMON NORMALS: regular rate, regular rhythm and S2 normal heart sound present RATE: regular rate RHYTHM: regular rhythm HEART SOUNDS: S2 normal heart sound present OTHER: No lower extremity edema GI: COMMON NORMALS: Normal to inspection, nondistended, normoactive bowel sounds present, Soft to palpation and non-tender PALPATION: Yes Soft to palpation Neuro: COMMON NORMALS: patient oriented x3 and no focal motor deficits Data : 12/12/19 05:29 12/12/19 05:29 Micro: Microbiology 12/08/19 14:56 Urine Culture - Final Urine,Clean Catch Serratia marcescens A&P Assessment and plan (1) Hypertension: Status: Acute (2) Acute blood loss anemia: Status: Acute (3) Upper GI bleed: Status: Acute (4) Urinary tract infection: Due to Serratia Marcescens Status: Acute (5) Acute kidney injury: Prerenal. Likely second to dehydration and GI bleed. Status: Acute (6) Dyslipidemia: Status: Acute (7) Hypothyroidism: Status: Acute (8) Diabetes mellitus type 2 in obese: Status: Acute (9) Mild dementia: Status: Acute (10) Dehydration with hyponatremia: Status: Acute Additional A&P Information PLAN: We will discontinue IV fluids and advance patient's diet to soft mechanical. Given very large ulcer and clot and high risk for rebleeding I will keep patient for 1 more day and monitor and if she remains stable we will likely be able to dismiss patient home tomorrow. Attestations Medical Necessity Statement*: Patient with significant GI bleed and very large ulcer and clot requires close inpatient monitoring and treatment due to high risk of rebleeding. 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
[2019-12-12 10:57] LABS: Glucose Point of Care 197 mg/dL (70-110)
[2019-12-12 12:00] VITALS: BP 165/78; PULSE 66; RESP 18; TEMP 36.8; O2SAT 97
[2019-12-12 15:59] VITALS: BP 170/88; PULSE 67; RESP 18; TEMP 37.2; O2SAT 97
[2019-12-12 17:13] LABS: Glucose Point of Care 184 mg/dL (70-110)
--- NOTE | 2019-12-12 18:03 | PC.NURSE ---
End of shift report: pt has been up to bedside commode multiple times throughout the day. pt has had two bowel movements one was formed with a black and green coloring the second with a loose, seedy look no visible bleeding. pt was advanced to a soft mechanical diet she has tolerated it well. pt has verbalized that she has had no pain today. BERNICE.
[2019-12-12 20:00] VITALS: BP 170/67; PULSE 69; RESP 24; TEMP 36.9; O2SAT 96
[2019-12-12 22:39] LABS: Glucose Point of Care 234 mg/dL (70-110)
[2019-12-13] VITALS: BP 162/72; PULSE 64; RESP 18; TEMP 37.1; O2SAT 96
[2019-12-13] MEDS: cefTAZidime 1,000 MG in sodium chloride 0.9% (plus) 50 ML 150 MG IV (01:49)
[2019-12-13] MEDS: sucralfate 1 gm/10 mL Oral Liq UDC PO ×3 (01:50→14:20)
[2019-12-13 03:57] VITALS: BP 148/69; PULSE 77; RESP 17; TEMP 36.8; O2SAT 98
[2019-12-13] MEDS: pantoprazole 40 mg SDV IVP ×2 (05:01→09:27)
[2019-12-13 05:06] LABS: Basophils # 0.1 10^3/uL (0.0-0.1); Basophils % 0.9 %; Eosinophils # 0.3 10^3/uL (0.0-0.8); Eosinophils % 3.3 %; Hematocrit 28.4 % (37.0-47.0); Hemoglobin 8.9 g/dL (11.5-15.3); Lymphocytes # 1.9 10^3/uL (0.8-4.8); Lymphocytes % 18.3 %; Mean Corpuscular HGB Conc 31.3 g/dL (30.0-36.0); Mean Corpuscular Hemoglobin 28.2 pg (28.0-34.0); Mean Corpuscular Volume 89.9 fL (81-99); Mean Platelet Volume 9.2 fL (7.4-10.4); Monocytes # 0.8 10^3/uL (0.2-0.9); Monocytes % 7.8 %; Neutrophils # 7.05 10^3/uL (1.8-7.7); Neutrophils % 69.2 %; Nucleated Red Blood Cells % 0 %; Platelet Count 406 10^3/cmm (130-400); Red Blood Count 3.16 10^6/uL (4.1-5.3); Red Cell Distribution Width 15.7 % (12.1-15.1); White Blood Count 10.2 10^3/uL (4.0-10.0)
[2019-12-13 05:28] LABS: Alanine Aminotransferase 11 U/L (0-33); Albumin Level 2.8 g/dL (3.5-5.2); Alkaline Phosphatase 77 IU/L (35-105); Anion Gap 11.5 (5-19); Aspartate Amino Transferase 12 U/L (0-32); Blood Urea Nitrogen 9 mg/dL (8-23); Calcium 9.5 mg/dL (8.5-10.5); Carbon Dioxide 20 mmol/L (22-29); Chloride 109 mmol/L (98-107); Globulin 2.7 g/dL (1.3-4.6); Glucose 148 mg/dL (65-115); Osmolality Calculated 283 mOsm/kg (285-295); Potassium 3.5 mmol/L (3.5-5.1); Sodium 137 mmol/L (136-145); Total Bilirubin 0.3 mg/dL (0.15-1.2); Total Protein 5.5 g/dL (6.6-8.7)
[2019-12-13 06:42] LABS: Glucose Point of Care 171 mg/dL (70-110)
[2019-12-13 07:27] VITALS: BP 177/79; PULSE 73; RESP 16; TEMP 36.7; O2SAT 97
[2019-12-13] MEDS: metoprolol succinate ER (24 HR) 100 mg Tablet 400 MG PO (09:27)
[2019-12-13] MEDS: amlodipine 5 mg Tablet PO (09:27)
[2019-12-13] MEDS: atorvastatin 40 mg Tablet 20 MG PO (09:28)
[2019-12-13] MEDS: levothyroxine 112 mcg Tablet PO (09:28)
[2019-12-13 10:44] LABS: Glucose Point of Care 250 mg/dL (70-110)
--- NOTE | 2019-12-13 10:56 | PC.SOCIAL ---
IMM Update Pg 2 of IMM updated, copy provided to patient.
[2019-12-13 11:04] VITALS: BP 160/70; PULSE 71; RESP 14; TEMP 36.8; O2SAT 97
--- NOTE | 2019-12-13 11:14 | PC.NURSE ---
Foot Assessment Pt family member requested staff to assess pt's feet for diabetic foot care. This nurse and Dr. Ortiz assessed pt's feet and noted them to be slightly dry but otherwise in good condition. Dr. Ortiz suggests pt follow up with PCP regarding possible fungal infection of left great toe.
[2019-12-13] MEDS: acetaminophen 500 mg Tablet 1000 MG PO (13:00)
--- NOTE | 2019-12-13 13:20 | P.DS_ITS ---
Discharge Providers Date of Admission: 12/08/19 15:10 Date of Discharge: December 13, 2019 Attending Provider at Admission: Charles Ortiz MD Attending Provider at Discharge: Charles Ortiz MD Diagnoses at Discharge Discharge Diagnosis (1) Hypertension: Status: Acute (2) Acute blood loss anemia: Status: Acute (3) Upper GI bleed: Status: Acute (4) Urinary tract infection: Status: Acute (5) Acute kidney injury: Status: Acute (6) Dyslipidemia: Status: Acute (7) Hypothyroidism: Status: Acute (8) Diabetes mellitus type 2 in obese: Status: Acute (9) Mild dementia: Status: Acute (10) Dehydration with hyponatremia: Status: Acute Reason for Visit Reason for Visit: CHEST PAIN/ WEAKNESS/ INCREASED CONFUSION Hospital Course Discharge Summary: Patient presented with epigastric area pain as well as upper GI bleed. She was further evaluated with EGD showing large ulcer with evidence of bleeding. Patient was treated with high-dose PPI and required blood transfusion. She gradually improved and this morning reports feeling much better and strong enough to be dismissed home. Her diet was advanced and she tolerated it well. She denies being nauseous this morning. She denies any abdominal or chest pain. She had large brown stool yesterday and her hemoglobin shows improvement. Her BUN normalized. She does not appear to have any evidence of bleeding. She was found to have urinary tract infection with Serratia and initially we tried Levaquin but patient developed itching. This was transitioned to ceftazidime and given clinical improvement we will dismiss patient and try ciprofloxacin. Patient was told to stop ciprofloxacin if she develops itching or any other allergic reaction. Patient to follow-up with Dr. Brown for repeat EGD in 6 weeks to make sure her ulcer is healing. Physical Exam Const: COMMON NORMALS: no acute distress and patient oriented x3 Resp: COMMON NORMALS: normal respiratory effort and clear to auscultation bilaterally AUSCULTATION: clear to auscultation bilaterally Cardio: COMMON NORMALS: regular rate, regular rhythm and S2 normal heart sound present RATE: regular rate RHYTHM: regular rhythm HEART SOUNDS: S2 normal heart sound present OTHER: No lower extremity edema GI: COMMON NORMALS: Normal to inspection, nondistended, normoactive bowel sounds present, Soft to palpation and non-tender PALPATION: Yes Soft to palpation Neuro: COMMON NORMALS: patient oriented x3 and no focal motor deficits Discharge Data Data Completed and Pending: Completed Studies During Hospitalization Category Date Time Status XR chest 1V prema ble [id number] Stat Exams 12/08/19 13:25 Completed Labs from last 24 hours 12/13/19 12/13/19 12/13/19 10:37 06:26 04:30 WBC RBC Hgb Hct MCV MCH MCHC RDW Plt Count MPV Neut % (Auto) Lymph % (Auto) [place] % (Auto) Eos % (Auto) Baso % (Auto) Neut # (Auto) Lymph # (Auto) [place] # (Auto) Eos # (Auto) Baso # (Auto) Nucleated RBC % (a uto) Nucleated RBCs # Sodium 137 Potassium 3.5 Chloride 109 H Carbon Dioxide 20 L Anion Gap 11.5 BUN 9 Creatinine 1.1 H GFR Calculation Not Reportable Glucose 148 H POC Glucose 250 171 Calculated Osmolal ity 283 L Calcium 9.5 Total Bilirubin 0.3 AST 12 ALT 11 Alkaline Phosphata se 77 Total Protein 5.5 L Albumin 2.8 L Globulin 2.7 12/13/19 12/12/19 12/12/19 04:30 20:27 17:02 WBC 10.2 H RBC 3.16 L Hgb 8.9 L Hct 28.4 L MCV 89.9 MCH 28.2 MCHC 31.3 RDW 15.7 H Plt Count 406 H MPV 9.2 Neut % (Auto) 69.2 Lymph % (Auto) 18.3 [place] % (Auto) 7.8 Eos % (Auto) 3.3 Baso % (Auto) 0.9 Neut # (Auto) 7.05 Lymph # (Auto) 1.9 [place] # (Auto) 0.8 Eos # (Auto) 0.3 Baso # (Auto) 0.1 Nucleated RBC % (a uto) 0 Nucleated RBCs # 0.0 Sodium Potassium Chloride Carbon Dioxide Anion Gap BUN Creatinine GFR Calculation Glucose POC Glucose 234 184 Calculated Osmolal ity Calcium Total Bilirubin AST ALT Alkaline Phosphata se Total Protein Albumin Globulin Vitals: Last Vital Signs Temp 98.2 F 12/13/19 11:04 Pulse 71 12/13/19 11:04 Resp 14 12/13/19 11:04 BP 160/70 12/13/19 11:04 Pulse Ox 97 12/13/19 11:04 Discharge Plan Discharge Patient Disposition: Home Condition: Stable Prescriptions: New sucralfate 100 mg/mL Suspension 1 g PO Q6H Qty: 12 RF: 0 pantoprazole [Protonix] 40 mg tablet,delayed release (DR/EC) 40 mg PO Q12H 60 Days Qty: 120 RF: 0 ciprofloxacin HCl 500 mg tablet 500 mg PO BID 3 Days Qty: 6 RF: 0 Continued metoprolol succinate 200 mg tablet extended release 24 hr 400 mg PO DAILY RF: 0 amlodipine 5 mg tablet 5 mg PO BID RF: 0 Tylenol Extra Strength 500 mg Tablet 1,000 mg PO PRN RF: 0 potassium chloride 20 mEq tablet,ER particles/crystals 20 meq PO DAILY RF: 0 pravastatin 80 mg tablet 80 mg PO DAILY RF: 0 furosemide 20 mg tablet 20 mg PO DAILY RF: 0 levothyroxine 112 mcg tablet 112 mcg PO DAILY RF: 0 Novolog Flexpen U-100 Insulin 100 unit/mL (3 mL) Insulin Pen See Rx Instructions .ROUTE .COMPLEX RF: 0 metformin 750 mg tablet extended release 24 hr 750 mg PO DAILY RF: 0 Levemir FlexTouch U-100 Insuln 100 unit/mL (3 mL) insulin pen See Rx Instructions .ROUTE .COMPLEX RF: 0 Discharge Orders: Discharge Order (Routine); Ordered 12/13/19 Ordered By: Charles Ortiz Referrals: [facility] [Outside] Dean Villalobos MD [Physician] - (Return to surgery office in 2 to 3 weeks to discuss repeat diagnostic EGD in 4 to 6-week) Discharge Diet: GI Soft Discharge Activity: Increase activity as tolerated Patient Instructions: GI Discharge Instructions Activity Restrictions/Additional Instructions: Please call your doctor or present to emergency department if your condition worsens or you develop diarrhea, lightheadedness, fatigue or see blood in your stool or black stool. Please stop taking ciprofloxacin if you develop any allergic reaction including itching. Please use soft GI diet for next 1 week and then gradually advance but avoid hard food. Please avoid any NSAIDs including aspirin. Should your rebleeding happen which may present as black stool you will need to be seen by interventional radiologist specialist for embolization of the artery to stop bleeding which unfortunately cannot be done in [place] and closest facility is in [place]. You will need to have repeat EGD in 6 weeks to make sure your ulcer is healing. 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
[2019-12-13] MEDS: ciprofloxacin 500 mg Tablet PO (14:20)
[2019-12-13 15:13] VITALS: BP 160/70; PULSE 71; RESP 14; TEMP 36.8; O2SAT 97
== END 2019-12-13 15:00 | disposition home or self-care (01) | DRG 378 ==
LOC: ER 12:40 → MEDSURG 15:24
PROVIDERS: Family Medicine; Surgery; Admitting Provider Internal Medicine; Visit Provider Internal Medicine
PROC: 0DJ08ZZ Inspection of Upper Intestinal Tract, Via Natural or Artificial Opening Endoscopic (ICD-10-PCS; CPT 43235; principal; 2019-12-10 08:00)
DX: K26.0 Acute duodenal ulcer with hemorrhage (principal); D62 Acute posthemorrhagic anemia; N17.9 Acute kidney failure, unspecified; N39.0 Urinary tract infection, site not specified; E87.1 Hypo-osmolality and hyponatremia; E11.9 Type 2 diabetes mellitus without complications; E78.5 Hyperlipidemia, unspecified; I10 Essential (primary) hypertension; E03.9 Hypothyroidism, unspecified; F03.90 Unspecified dementia, unspecified severity, without behavioral disturbance, psychotic disturbance, mood disturbance, and anxiety; E86.0 Dehydration; E66.9 Obesity, unspecified; Z68.31 Body mass index [BMI] 31.0-31.9, adult; K21.9 Gastro-esophageal reflux disease without esophagitis; I85.00 Esophageal varices without bleeding; K29.70 Gastritis, unspecified, without bleeding
CPT/HCPCS: 12345; 36415; 36416; 36430; 43255; 71045; 80053; 81001; 82274; 82962; 83036; 83735; 84100; 84484; 85025; 85610; 85730; 86850; 86900; 86920; 87077; 87086; 87186; 93005; 96372; 96375; 97116; 97161; 97165; 97530; 99283; C9113; J0171; J0696; J0713; J1815; J1956; J3475; J7030; J7040; P9016

== ENCOUNTER 2020-06-30 03:23 | Emergency (ER) | payer MEDICARE, SELFPAY ==
[2020-06-30 03:31] VITALS: BP 205/93; PULSE 79; RESP 17; TEMP 36.9; O2SAT 98; BMI 34.7
--- NOTE | 2020-06-30 03:46 | CTR_ITS ---
PROCEDURE INFORMATION: Exam: CT Angiography Chest With Contrast Exam date and time: 06/30/2020 6:53 AM Age: 85 years old Clinical indication: Abdominal pain; Chest pain; Additional info: Abd pain/chest pain TECHNIQUE: Imaging protocol: Computed tomographic angiography of the chest with contrast. 3D rendering (Not supervised by radiologist): MIP and/or 3D reconstructed images were created by the technologist. Radiation optimization: All CT scans at this facility use at least one of these dose optimization techniques: automated exposure control; mA and/or kV adjustment per patient size (includes targeted exams where dose is matched to clinical indication); or iterative reconstruction. Contrast material: VISI 320; Contrast volume: 95 ml; Contrast route: INTRAVENOUS (IV); COMPARISON: CR XR chest 1V portable [id number] 12/08/2019 1:50 PM RADIATION DOSE METRICS: Total DLP (mGy-cm): 1693.78 FINDINGS: Pulmonary arteries: Normal. No pulmonary emboli. Aorta: There is calcification of the aorta but there is no aneurysm. Lungs: Small benign calcified granulomas are present in the lungs. Benign calcified hilar lymph nodes are present. There is mild dependent atelectasis. No pneumonia is seen. Pleural spaces: Unremarkable. No pneumothorax. No pleural effusion. Heart: Heart is mildly enlarged. There is calcification of the coronary arteries. Lymph nodes: See Lungs finding. Bones/joints: Chronic degenerative changes are present in the spine with disc space narrowing sclerosis and osteophytes. Soft tissues: Unremarkable. IMPRESSION: 1. No CT evidence of pulmonary embolus or aortic aneurysm. 2. Coronary artery calcification. 3. Benign calcified granulomas disease. PROCEDURE INFORMATION: Exam: CT Abdomen And Pelvis With Contrast Exam date and time: 06/30/2020 6:53 AM Age: 85 years old Clinical indication: Abdominal pain; Chest pain; Additional info: Abd pain/chest pain TECHNIQUE: Imaging protocol: Computed tomography of the abdomen and pelvis with contrast. Radiation optimization: All CT scans at this facility use at least one of these dose optimization techniques: automated exposure control; mA and/or kV adjustment per patient size (includes targeted exams where dose is matched to clinical indication); or iterative reconstruction. Contrast material: VISI 320; Contrast volume: 95 ml; Contrast route: INTRAVENOUS (IV); COMPARISON: CR XR chest 1V portable [id number] 12/08/2019 1:50 PM RADIATION DOSE METRICS: Total DLP (mGy-cm): 1693.78 FINDINGS: Liver: Normal. No mass. Gallbladder and bile ducts: Cholelithiasis. Normal bile ducts. Pancreas: Normal. No ductal dilation. Spleen: Normal. No splenomegaly. Adrenal glands: Normal. No mass. Kidneys and ureters: Normal. No hydronephrosis. Stomach and bowel: There is prominent mural thickening of the gastric antrum, pylorus proximal duodenum consistent with a gastroduodenitis though other infiltrative processes cannot be excluded.. There is a 4 cm extraluminal fluid collection with a few tiny bubbles of air posterior to the pylorus which is consistent with a perforated ulcer. Appendix: No evidence of appendicitis. Intraperitoneal space: Unremarkable. No free air. No significant fluid collection. Vasculature: There is calcification of the aorta and iliac arteries. There is no aneurysm. Lymph nodes: Unremarkable. No enlarged lymph nodes. Urinary bladder: Unremarkable as visualized. Reproductive: Unremarkable as visualized. Bones/joints: Degenerative changes are present in the spine with joint space narrowing sclerosis and osteophytes. Soft tissues: Unremarkable. CT/CT angio chest w abd pel w con IMPRESSION: 1. There is prominent mural thickening of the gastric antrum and duodenum consistent with gastritis and duodenitis though other infiltrative processes cannot be excluded. 2. There is a 4 cm extraluminal fluid collection with tiny gas bubbles posterior to the pylorus which is consistent with perforated ulcer. 3. Cholelithiasis. Normal bile ducts. Delete that 4. Calcified atherosclerotic aorta. Radiation Dose CTDIVOL = (mGy): DLP = 1693.78~1693.78 (mGy-cm)
[2020-06-30] MEDS: sodium chloride 0.9% 1,000 ML 999 ML IV (04:07)
[2020-06-30 05:32] VITALS: BP 106/67; PULSE 71; RESP 16; O2SAT 95
[2020-06-30 06:04] LABS: Basophils # 0.1 10^3/uL (0.0-0.1); Basophils % 0.8 %; Eosinophils # 0.2 10^3/uL (0.0-0.8); Eosinophils % 1.8 %; Hematocrit 34.6 % (37.0-47.0); Hemoglobin 10.6 g/dL (11.5-15.3); Lymphocytes # 1.6 10^3/uL (0.8-4.8); Lymphocytes % 11.4 %; Mean Corpuscular HGB Conc 30.6 g/dL (30.0-36.0); Mean Corpuscular Hemoglobin 25.4 pg (28.0-34.0); Mean Corpuscular Volume 82.8 fL (81-99); Mean Platelet Volume 9.7 fL (7.4-10.4); Monocytes % 7.5 %; Neutrophils % 78.1 %; Nucleated Red Blood Cells % 0 %; Platelet Count 333 10^3/cmm (130-400); Red Blood Count 4.18 10^6/uL (4.1-5.3); Red Cell Distribution Width 14.1 % (12.1-15.1); White Blood Count 13.7 10^3/uL (4.0-10.0)
[2020-06-30 06:37] LABS: Alanine Aminotransferase 9 U/L (0-33); Albumin Level 3.3 g/dL (3.5-5.2); Alkaline Phosphatase 106 IU/L (35-105); Anion Gap 15.9 (5-19); Aspartate Amino Transferase 11 U/L (0-32); Blood Urea Nitrogen 24 mg/dL (8-23); Calcium 10.2 mg/dL (8.5-10.5); Carbon Dioxide 22 mmol/L (22-29); Chloride 102 mmol/L (98-107); Globulin 3.6 g/dL (1.3-4.6); Glucose 166 mg/dL (65-115); Lipase 51 U/L (13-60); Osmolality Calculated 288 mOsm/kg (285-295); Potassium 4.9 mmol/L (3.5-5.1); Sodium 135 mmol/L (136-145); Total Bilirubin 0.3 mg/dL (0.15-1.2); Total Protein 6.9 g/dL (6.6-8.7)
--- NOTE | 2020-06-30 06:59 | ECG_ITS ---
[facility] Test Date: 2020-06-30 Pat Name: Nuria Ramos Department: Room: Gender: Female Youth Manager: : 1935 Requested By: Andreas Ye Order Number: [id number] Farhat MD: Deejay Garcia M.D. Measurements Intervals Marty Rate: 71 P: 21 MD: 182 QRS: 15 QRSD: 80 T: 39 QT: 362 QTc: 394 Interpretive Statements SINUS RHYTHM MODERATE ST DEPRESSION [0.05+ mV ST DEPRESSION] Compared to ECG 12/08/2019 15:29:19 No significant changes Electronically Signed On 06-30-2020 22:40:05 CDT by Deejay Garcia M.D. [id number]
[2020-06-30] MEDS: iodixanol 320 mg/mL 100mL Btl IV (07:22)
--- NOTE | 2020-06-30 07:23 | W.ED.ABDPA2 ---
Documented by User: Christian Monge DO 06/30/20 07:29 HPI - Abdominal Pain General: Chief Complaint: Abdominal Pain Stated Complaint: ABD PAIN Time Seen by Provider: 06/30/20 03:46 History of Present Illness: HPI narrative: 85-year-old female presents by ambulance with complaints of belly pain that is generalized for the past 3 days or so. She denies any vomiting, she denies diarrhea. She states she has been nauseated. She denies fever. She does not appear to be a terribly reliable historian. MD elicited complaint: abdominal pain Onset (ago): day(s) Pain Consistency: constant Location: Diffuse Severity: moderate Radiation: none Migration to: no migration Exacerbating factors: nothing Relieving factors: nothing Associated Symptoms: Reports nausea and poor appetite; Denies change in stool character, diarrhea, fever(s) and vomiting Review of Systems Const: Denies: fever(s) Card: Reports: chest pain (This was told later, after the initial exam) Resp: Denies: dyspnea or productive cough GI: Reports: nausea; Denies: vomiting, diarrhea or change in stool character Neuro: Reports: confusion; Denies: headache(s) [facility] PFSH: Medical History (Updated 06/30/20 @ 10:54 by Andreas Ye MD) Ankle fracture, left Diabetes mellitus type 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 Social History Smoking and tobacco status: never smoked Alcohol intake: never Physical Exam Const: COMMON NORMALS: no acute distress GENERAL APPEARANCE: cooperative and comfortable ORIENTATION/CONSCIOUSNESS: Yes awake, Yes oriented to person and Yes oriented to place; not oriented to time Eye: COMMON NORMALS: Equal, round and reactive pupils present and EOMs intact bilaterally PUPIL: Yes Equal, round and reactive pupils present Chest: COMMONS NORMALS: normal inspection of the chest Resp: COMMON NORMALS: normal respiratory effort, No retractions, No use of accessory muscles and clear to auscultation bilaterally AUSCULTATION: clear to auscultation bilaterally Cardio: COMMON NORMALS: regular rate and regular rhythm RATE: regular rate RHYTHM: regular rhythm GI: COMMON NORMALS: Normal to inspection, nondistended, normoactive bowel sounds present and Soft to palpation PALPATION: Yes Soft to palpation and Yes Tenderness to palpation present (GI) (diffuse) Neuro: SENSORIUM/ORIENTATION: Yes oriented to person, Yes oriented to place and No oriented to time Course Vital Signs: Vital signs: Vital Signs Temperature 98.4 F 06/30/20 03:31 Pulse Rate 71 06/30/20 11:20 Respiratory Rate 18 06/30/20 11:20 Blood Pressure 165/78 06/30/20 11:20 Pulse Oximetry 100 06/30/20 11:20 MDM - Abdominal Pain MDM Narrative: Medical decision making narrative: 85-year-old female with a complaint of diffuse belly pain. She is afebrile here. White blood cell count is 13.7. Her creatinine is 1.3. She later complained of chest discomfort. This was not explained on the initial exam. Results of CT angio chest with abdomen pelvis with contrast are pending. The patient was checked out to Dr. Ye at shift change. Lab Data: Labs: Lab Results 06/30/20 06/30/20 06/30/20 Range/Units 03:30 05:54 05:54 WBC 13.7 H (4.0-10.0) 10^3/ uL RBC 4.18 (4.1-5.3) 10^6/u L Hgb 10.6 L (11.5-15.3) g/dL Hct 34.6 L (37.0-47.0) % MCV 82.8 (81-99) fL MCH 25.4 L (28.0-34.0) pg MCHC 30.6 (30.0-36.0) g/dL RDW 14.1 (12.1-15.1) % Plt Count 333 (130-400) 10^3/c mm MPV 9.7 (7.4-10.4) fL Neut % (Auto) 78.1 % Lymph % (Auto) 11.4 % [place] % (Auto) 7.5 % Eos % (Auto) 1.8 % Baso % (Auto) 0.8 % Neut # (Auto) 10.70 H (1.8-7.7) 10^3/u L Lymph # (Auto) 1.6 (0.8-4.8) 10^3/u L [place] # (Auto) 1.0 H (0.2-0.9) 10^3/u L Eos # (Auto) 0.2 (0.0-0.8) 10^3/u L Baso # (Auto) 0.1 (0.0-0.1) 10^3/u L Nucleated RBC % (a uto) 0 % Nucleated RBCs # 0.0 /100WBC Sodium 135 L (136-145) mmol/L Potassium 4.9 (3.5-5.1) mmol/L Chloride 102 (98-107) mmol/L Carbon Dioxide 22 (22-29) mmol/L Anion Gap 15.9 (5-19) BUN 24 H (8-23) mg/dL Creatinine 1.3 H (0.5-0.9) mg/dL GFR Calculation Not Reportable Glucose 166 H (65-115) mg/dL Calculated Osmolal ity 288 (285-295) mOsm/k g Lactate (0.5-2.2) mmol/L Calcium 10.2 (8.5-10.5) mg/dL Total Bilirubin 0.3 (0.15-1.2) mg/dL AST 11 (0-32) U/L ALT 9 (0-33) U/L Alkaline Phosphata se 106 H (35-105) IU/L Troponin T Baselin e (0-10) ng/L Troponin T 120 Min [place] (0-10) ng/L Delta Troponin T (0-10) ABS# Total Protein 6.9 (6.6-8.7) g/dL Albumin 3.3 L (3.5-5.2) g/dL Globulin 3.6 (1.3-4.6) g/dL Lipase 51 (13-60) U/L Urine Color Straw (Yellow) Urine Appearance Cloudy (CLEAR) Urine pH 5 (5-7) Ur Specific Gravit y 1.015 (1.005-1.030) Urine Protein 3+ H (Negative) Urine Glucose (UA) Norm (Normal) Urine Ketones Negative (Negative) Urine Blood 2+ H (Negative) Urine Nitrate Negative (Negative) Urine Bilirubin Neg (Negative) Urine Urobilinogen Norm (Negative) mg/dL Ur Leukocyte Joyce ase 2+ H (Negative) Urine RBC 10-15 H (0-2) /hpf Urine WBC Too numerous to c nt H (0-5) /hpf Ur Squamous Epith Cells None (0-5) /hpf Amorphous Sediment Not Reportable Urine Bacteria 4+ H (NONE) /hpf 06/30/20 06/30/20 06/30/20 Range/Units 05:54 08:26 08:26 WBC (4.0-10.0) 10^3/ uL RBC (4.1-5.3) 10^6/u L Hgb (11.5-15.3) g/dL Hct (37.0-47.0) % MCV (81-99) fL MCH (28.0-34.0) pg MCHC (30.0-36.0) g/dL RDW (12.1-15.1) % Plt Count (130-400) 10^3/c mm MPV (7.4-10.4) fL Neut % (Auto) % Lymph % (Auto) % [place] % (Auto) % Eos % (Auto) % Baso % (Auto) % Neut # (Auto) (1.8-7.7) 10^3/u L Lymph # (Auto) (0.8-4.8) 10^3/u L [place] # (Auto) (0.2-0.9) 10^3/u L Eos # (Auto) (0.0-0.8) 10^3/u L Baso # (Auto) (0.0-0.1) 10^3/u L Nucleated RBC % (a uto) % Nucleated RBCs # /100WBC Sodium (136-145) mmol/L Potassium (3.5-5.1) mmol/L Chloride (98-107) mmol/L Carbon Dioxide (22-29) mmol/L Anion Gap (5-19) BUN (8-23) mg/dL Creatinine (0.5-0.9) mg/dL GFR Calculation Glucose (65-115) mg/dL Calculated Osmolal ity (285-295) mOsm/k g Lactate 1.2 (0.5-2.2) mmol/L Calcium (8.5-10.5) mg/dL Total Bilirubin (0.15-1.2) mg/dL AST (0-32) U/L ALT (0-33) U/L Alkaline Phosphata se (35-105) IU/L Troponin T Baselin e 23 H (0-10) ng/L Troponin T 120 Min [place] 22.26 H (0-10) ng/L Delta Troponin T -0.74 L (0-10) ABS# Total Protein (6.6-8.7) g/dL Albumin (3.5-5.2) g/dL Globulin (1.3-4.6) g/dL Lipase (13-60) U/L Urine Color (Yellow) Urine Appearance (CLEAR) Urine pH (5-7) Ur Specific Gravit y (1.005-1.030) Urine Protein (Negative) Urine Glucose (UA) (Normal) Urine Ketones (Negative) Urine Blood (Negative) Urine Nitrate (Negative) Urine Bilirubin (Negative) Urine Urobilinogen (Negative) mg/dL Ur Leukocyte Joyce ase (Negative) Urine RBC (0-2) /hpf Urine WBC (0-5) /hpf Ur Squamous Epith Cells (0-5) /hpf Amorphous Sediment Urine Bacteria (NONE) /hpf Discharge Plan Discharge Patient Disposition: Left Against Medical Advice Clinical Impression: Perforated gastric ulcer Qualifiers: Gastric ulcer chronicity: acute Qualified Code(s): K25.1 - Acute gastric ulcer with perforation Condition: Stable Prescriptions: New Augmentin 875-125 mg tablet 1 tab PO BID Qty: 14 RF: 0 ondansetron 4 mg tablet,disintegrating 4 mg PO Q6H PRN (Reason: nausea and vomiting) Qty: 14 RF: 0 [place] 5-325 mg tablet 1 tab PO Q6H PRN (Reason: pain) Qty: 14 RF: 0 No Action metoprolol succinate 200 mg tablet extended release 24 hr 400 mg PO DAILY RF: 0 amlodipine 5 mg tablet 5 mg PO BID RF: 0 Tylenol Extra Strength 500 mg Tablet 1,000 mg PO PRN RF: 0 potassium chloride 20 mEq tablet,ER particles/crystals 20 meq PO DAILY RF: 0 pravastatin 80 mg tablet 80 mg PO DAILY RF: 0 furosemide 20 mg tablet 20 mg PO DAILY RF: 0 levothyroxine 112 mcg tablet 112 mcg PO DAILY RF: 0 Novolog Flexpen U-100 Insulin 100 unit/mL (3 mL) Insulin Pen See Rx Instructions .ROUTE .COMPLEX RF: 0 metformin 750 mg tablet extended release 24 hr 750 mg PO DAILY RF: 0 Levemir FlexTouch U-100 Insuln 100 unit/mL (3 mL) insulin pen See Rx Instructions .ROUTE .COMPLEX RF: 0 sucralfate 100 mg/mL Suspension 1 g PO Q6H Qty: 12 RF: 0 Discharge Diet: Advance as tolerated Discharge Activity: Resume usual activity Patient Instructions: Peptic Ulcer (ED), Abdominal Pain (ED) Coding Level of Care Code ED Senior Graphic Designer for Chg Fwd Exam Detailed Documented by User: Andreas Ye MD 06/30/20 11:30 HPI - Abdominal Pain General: Chief Complaint: Abdominal Pain Stated Complaint: ABD PAIN Time Seen by Provider: 06/30/20 03:46 [facility] ED PFSH: Medical History (Updated 06/30/20 @ 10:54 by Andreas Ye MD) Ankle fracture, left Diabetes mellitus type 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 Social History Smoking and tobacco status: never smoked Alcohol intake: never Course Vital Signs: Vital signs: Vital Signs Temperature 98.4 F 06/30/20 03:31 Pulse Rate 71 06/30/20 11:20 Respiratory Rate 18 06/30/20 11:20 Blood Pressure 165/78 06/30/20 11:20 Pulse Oximetry 100 06/30/20 11:20 MDM - Abdominal Pain MDM Narrative: Medical decision making narrative: I took patient over from Dr. Monge. I did a CT abdomen and Dr. [place] came and saw the patient and requested 1 with oral contrast. He went and spoke to the patient again he felt that she would be better off being transferred at [facility] as he felt she needed a higher level of care with a posterior perforation possible lymphoma. I spoke at length with patient and family. Patient is adamant she does not want any surgery. She and her family had a long discussion she decided she want to go home be on comfort care at this time. Patient signed out AMA. Highly recommended against this informed her she could go to [facility] and be evaluated and likely have surgery. She refused did place her on antibiotics and informed her she changed her mind she is to return. Lab Data: Labs: Lab Results 06/30/20 06/30/20 06/30/20 Range/Units 03:30 05:54 05:54 WBC 13.7 H (4.0-10.0) 10^3/ uL RBC 4.18 (4.1-5.3) 10^6/u L Hgb 10.6 L (11.5-15.3) g/dL Hct 34.6 L (37.0-47.0) % MCV 82.8 (81-99) fL MCH 25.4 L (28.0-34.0) pg MCHC 30.6 (30.0-36.0) g/dL RDW 14.1 (12.1-15.1) % Plt Count 333 (130-400) 10^3/c mm MPV 9.7 (7.4-10.4) fL Neut % (Auto) 78.1 % Lymph % (Auto) 11.4 % [place] % (Auto) 7.5 % Eos % (Auto) 1.8 % Baso % (Auto) 0.8 % Neut # (Auto) 10.70 H (1.8-7.7) 10^3/u L Lymph # (Auto) 1.6 (0.8-4.8) 10^3/u L [place] # (Auto) 1.0 H (0.2-0.9) 10^3/u L Eos # (Auto) 0.2 (0.0-0.8) 10^3/u L Baso # (Auto) 0.1 (0.0-0.1) 10^3/u L Nucleated RBC % (a uto) 0 % Nucleated RBCs # 0.0 /100WBC Sodium 135 L (136-145) mmol/L Potassium 4.9 (3.5-5.1) mmol/L Chloride 102 (98-107) mmol/L Carbon Dioxide 22 (22-29) mmol/L Anion Gap 15.9 (5-19) BUN 24 H (8-23) mg/dL Creatinine 1.3 H (0.5-0.9) mg/dL GFR Calculation Not Reportable Glucose 166 H (65-115) mg/dL Calculated Osmolal ity 288 (285-295) mOsm/k g Lactate (0.5-2.2) mmol/L Calcium 10.2 (8.5-10.5) mg/dL Total Bilirubin 0.3 (0.15-1.2) mg/dL AST 11 (0-32) U/L ALT 9 (0-33) U/L Alkaline Phosphata se 106 H (35-105) IU/L Troponin T Baselin e (0-10) ng/L Troponin T 120 Min [place] (0-10) ng/L Delta Troponin T (0-10) ABS# Total Protein 6.9 (6.6-8.7) g/dL Albumin 3.3 L (3.5-5.2) g/dL Globulin 3.6 (1.3-4.6) g/dL Lipase 51 (13-60) U/L Urine Color Straw (Yellow) Urine Appearance Cloudy (CLEAR) Urine pH 5 (5-7) Ur Specific Gravit y 1.015 (1.005-1.030) Urine Protein 3+ H (Negative) Urine Glucose (UA) Norm (Normal) Urine Ketones Negative (Negative) Urine Blood 2+ H (Negative) Urine Nitrate Negative (Negative) Urine Bilirubin Neg (Negative) Urine Urobilinogen Norm (Negative) mg/dL Ur Leukocyte Joyce ase 2+ H (Negative) Urine RBC 10-15 H (0-2) /hpf Urine WBC Too numerous to c nt H (0-5) /hpf Ur Squamous Epith Cells None (0-5) /hpf Amorphous Sediment Not Reportable Urine Bacteria 4+ H (NONE) /hpf 06/30/20 06/30/20 06/30/20 Range/Units 05:54 08:26 08:26 WBC (4.0-10.0) 10^3/ uL RBC (4.1-5.3) 10^6/u L Hgb (11.5-15.3) g/dL Hct (37.0-47.0) % MCV (81-99) fL MCH (28.0-34.0) pg MCHC (30.0-36.0) g/dL RDW (12.1-15.1) % Plt Count (130-400) 10^3/c mm MPV (7.4-10.4) fL Neut % (Auto) % Lymph % (Auto) % [place] % (Auto) % Eos % (Auto) % Baso % (Auto) % Neut # (Auto) (1.8-7.7) 10^3/u L Lymph # (Auto) (0.8-4.8) 10^3/u L [place] # (Auto) (0.2-0.9) 10^3/u L Eos # (Auto) (0.0-0.8) 10^3/u L Baso # (Auto) (0.0-0.1) 10^3/u L Nucleated RBC % (a uto) % Nucleated RBCs # /100WBC Sodium (136-145) mmol/L Potassium (3.5-5.1) mmol/L Chloride (98-107) mmol/L Carbon Dioxide (22-29) mmol/L Anion Gap (5-19) BUN (8-23) mg/dL Creatinine (0.5-0.9) mg/dL GFR Calculation Glucose (65-115) mg/dL Calculated Osmolal ity (285-295) mOsm/k g Lactate 1.2 (0.5-2.2) mmol/L Calcium (8.5-10.5) mg/dL Total Bilirubin (0.15-1.2) mg/dL AST (0-32) U/L ALT (0-33) U/L Alkaline Phosphata se (35-105) IU/L Troponin T Baselin e 23 H (0-10) ng/L Troponin T 120 Min [place] 22.26 H (0-10) ng/L Delta Troponin T -0.74 L (0-10) ABS# Total Protein (6.6-8.7) g/dL Albumin (3.5-5.2) g/dL Globulin (1.3-4.6) g/dL Lipase (13-60) U/L Urine Color (Yellow) Urine Appearance (CLEAR) Urine pH (5-7) Ur Specific Gravit y (1.005-1.030) Urine Protein (Negative) Urine Glucose (UA) (Normal) Urine Ketones (Negative) Urine Blood (Negative) Urine Nitrate (Negative) Urine Bilirubin (Negative) Urine Urobilinogen (Negative) mg/dL Ur Leukocyte Joyce ase (Negative) Urine RBC (0-2) /hpf Urine WBC (0-5) /hpf Ur Squamous Epith Cells (0-5) /hpf Amorphous Sediment Urine Bacteria (NONE) /hpf Imaging Data ^: CT Abd/Pel: Radiologist's impression: [facility] [address] [address] Scan Report Signed Patient: Nuria Ramos Unit #: [id number] : 1935 Age/Sex: 85 / F ADM Date: 06/30/20 Loc: ER Room/Bed: Attending Dr: Ordering Provider/Ordering MD: Christian Monge DO Date of Service: 06/30/20 Procedure(s): CT angio chest w abd pel w con Accession Number(s): [id number] Report Number: [id number] PROCEDURE INFORMATION: Exam: CT Angiography Chest With Contrast Exam date and time: 06/30/2020 6:53 AM Age: 85 years old Clinical indication: Abdominal pain; Chest pain; Additional info: Abd pain/chest pain TECHNIQUE: Imaging protocol: Computed tomographic angiography of the chest with contrast. 3D rendering (Not supervised by radiologist): MIP and/or 3D reconstructed images were created by the technologist. Radiation optimization: All CT scans at this facility use at least one of these dose optimization techniques: automated exposure control; mA and/or kV adjustment per patient size (includes targeted exams where dose is matched to clinical indication); or iterative reconstruction. Contrast material: VISI 320; Contrast volume: 95 ml; Contrast route: INTRAVENOUS (IV); COMPARISON: CR XR chest 1V portable [id number] 12/08/2019 1:50 PM RADIATION DOSE METRICS: Total DLP (mGy-cm): 1693.78 FINDINGS: Pulmonary arteries: Normal. No pulmonary emboli. Aorta: There is calcification of the aorta but there is no aneurysm. Lungs: Small benign calcified granulomas are present in the lungs. Benign calcified hilar lymph nodes are present. There is mild dependent atelectasis. No pneumonia is seen. Pleural spaces: Unremarkable. No pneumothorax. No pleural effusion. Heart: Heart is mildly enlarged. There is calcification of the coronary arteries. Lymph nodes: See Lungs finding. Bones/joints: Chronic degenerative changes are present in the spine with disc space narrowing sclerosis and osteophytes. Soft tissues: Unremarkable. IMPRESSION: 1. No CT evidence of pulmonary embolus or aortic aneurysm. 2. Coronary artery calcification. 3. Benign calcified granulomas disease. PROCEDURE INFORMATION: Exam: CT Abdomen And Pelvis With Contrast Exam date and time: 06/30/2020 6:53 AM Age: 85 years old Clinical indication: Abdominal pain; Chest pain; Additional info: Abd pain/chest pain TECHNIQUE: Imaging protocol: Computed tomography of the abdomen and pelvis with contrast. Radiation optimization: All CT scans at this facility use at least one of these dose optimization techniques: automated exposure control; mA and/or kV adjustment per patient size (includes targeted exams where dose is matched to clinical indication); or iterative reconstruction. Contrast material: VISI 320; Contrast volume: 95 ml; Contrast route: INTRAVENOUS (IV); COMPARISON: CR XR chest 1V portable [id number] 12/08/2019 1:50 PM RADIATION DOSE METRICS: Total DLP (mGy-cm): 1693.78 FINDINGS: Liver: Normal. No mass. Gallbladder and bile ducts: Cholelithiasis. Normal bile ducts. Pancreas: Normal. No ductal dilation. Spleen: Normal. No splenomegaly. Adrenal glands: Normal. No mass. Kidneys and ureters: Normal. No hydronephrosis. Stomach and bowel: There is prominent mural thickening of the gastric antrum, pylorus proximal duodenum consistent with a gastroduodenitis though other infiltrative processes cannot be excluded.. There is a 4 cm extraluminal fluid collection with a few tiny bubbles of air posterior to the pylorus which is consistent with a perforated ulcer. Appendix: No evidence of appendicitis. Intraperitoneal space: Unremarkable. No free air. No significant fluid collection. Vasculature: There is calcification of the aorta and iliac arteries. There is no aneurysm. Lymph nodes: Unremarkable. No enlarged lymph nodes. Urinary bladder: Unremarkable as visualized. Reproductive: Unremarkable as visualized. Bones/joints: Degenerative changes are present in the spine with joint space narrowing sclerosis and osteophytes. Soft tissues: Unremarkable. CT/CT angio chest w abd pel w con IMPRESSION: 1. There is prominent mural thickening of the gastric antrum and duodenum consistent with gastritis and duodenitis though other infiltrative processes cannot be excluded. 2. There is a 4 cm extraluminal fluid collection with tiny gas bubbles posterior to the pylorus which is consistent with perforated ulcer. 3. Cholelithiasis. Normal bile ducts. Delete that 4. Calcified atherosclerotic aorta. Discharge Plan Discharge Patient Disposition: Left Against Medical Advice Clinical Impression: Perforated gastric ulcer Qualifiers: Gastric ulcer chronicity: acute Qualified Code(s): K25.1 - Acute gastric ulcer with perforation Condition: Stable Prescriptions: New Augmentin 875-125 mg tablet 1 tab PO BID Qty: 14 RF: 0 ondansetron 4 mg tablet,disintegrating 4 mg PO Q6H PRN (Reason: nausea and vomiting) Qty: 14 RF: 0 [place] 5-325 mg tablet 1 tab PO Q6H PRN (Reason: pain) Qty: 14 RF: 0 No Action metoprolol succinate 200 mg tablet extended release 24 hr 400 mg PO DAILY RF: 0 amlodipine 5 mg tablet 5 mg PO BID RF: 0 Tylenol Extra Strength 500 mg Tablet 1,000 mg PO PRN RF: 0 potassium chloride 20 mEq tablet,ER particles/crystals 20 meq PO DAILY RF: 0 pravastatin 80 mg tablet 80 mg PO DAILY RF: 0 furosemide 20 mg tablet 20 mg PO DAILY RF: 0 levothyroxine 112 mcg tablet 112 mcg PO DAILY RF: 0 Novolog Flexpen U-100 Insulin 100 unit/mL (3 mL) Insulin Pen See Rx Instructions .ROUTE .COMPLEX RF: 0 metformin 750 mg tablet extended release 24 hr 750 mg PO DAILY RF: 0 Levemir FlexTouch U-100 Insuln 100 unit/mL (3 mL) insulin pen See Rx Instructions .ROUTE .COMPLEX RF: 0 sucralfate 100 mg/mL Suspension 1 g PO Q6H Qty: 12 RF: 0 Discharge Diet: Advance as tolerated Discharge Activity: Resume usual activity Patient Instructions: Peptic Ulcer (ED), Abdominal Pain (ED) Coding Level of Care Code ED Senior Graphic Designer for Valeria Fwd Exam Detailed
[2020-06-30 07:54] VITALS: BP 242/113; PULSE 75; RESP 18; O2SAT 100
--- NOTE | 2020-06-30 08:15 | CTR_ITS ---
PROCEDURE INFORMATION: Exam: CT Abdomen And Pelvis Without Contrast Exam date and time: 06/30/2020 8:26 AM Age: 85 years old Clinical indication: Abdominal pain; Generalized; Additional info: Abd pain TECHNIQUE: Imaging protocol: Computed tomography of the abdomen and pelvis without contrast. Radiation optimization: All CT scans at this facility use at least one of these dose optimization techniques: automated exposure control; mA and/or kV adjustment per patient size (includes targeted exams where dose is matched to clinical indication); or iterative reconstruction. Other contrast: Oral, Omnipaque 300 , 20 ml; COMPARISON: CT angio chest w abd pel w con 06/30/2020 7:29 AM RADIATION DOSE METRICS: Total DLP (mGy-cm): 2002.55 FINDINGS: Lungs: There is bibasilar compressive atelectasis. Heart: The heart is enlarged. There is calcification of the coronary arteries. There is minimal pericardial effusion. Liver: Normal. No mass. Gallbladder and bile ducts: Cholelithiasis. Normal bile ducts. Pancreas: Normal. No ductal dilation. Spleen: Normal. No splenomegaly. Adrenal glands: Normal. No mass. Kidneys and ureters: Normal. No hydronephrosis. Stomach and bowel: There is prominent mural thickening of the stomach antrum pylorus and proximal duodenum. There is a protruding collection of contrast with air bubbles extending posterior superiorly from the gastric antrum or pylorus. There may be a small amount of hazy infiltration of the surrounding fat and may be a few mildly prominent adjacent lymph nodes. This could represent perforated ulceration. If the patient does not have clinical presentation consistent with ulceration this might represent an unusual appearance of a diverticulum. Upper GI endoscopy may be helpful for further evaluation. The prominent mural thickening may be due to peptic ulcer disease but other infiltrative processes like lymphoma are also considerations. Appendix: No evidence of appendicitis. Intraperitoneal space: Unremarkable. No free air. No significant fluid collection. Vasculature: There is calcification of the aorta and iliac arteries. Is calcification of the origins of the renal arteries. Lymph nodes: See Stomach and bowel finding. Urinary bladder: Unremarkable as visualized. Reproductive: Unremarkable as visualized. Bones/joints: Unremarkable. No acute fracture. Soft tissues: Unremarkable. CT/CT abdomen pelvis wo con [id number] IMPRESSION: 1. Prominent mural thickening of the stomach antrum and duodenum. This could be due to peptic ulcer disease but other infiltrative processes like lymphoma cannot be excluded. 2. There is a 4 cm protrusion of contrast material with a few bubbles of air protruding posterior superiorly from the antrum or pylorus. Though this could represent a unusual large diverticulum off this segment with the prominent mural thickening a perforated gastric ulcer is the primary consideration. Upper GI endoscopy may be helpful for further evaluation. 3. Cholelithiasis. Findings were discussed with RENE KURTZ at 06/30/2020 10:22 AM CDT. Radiation Dose CTDIVOL = (mGy): DLP = 2003.55 (mGy-cm)
[2020-06-30 08:18] LABS: Add Urine Microscopic? YES; Bilirubin Urine Neg (Negative); Blood Urine 2+ (Negative); Glucose Urine UA Norm (Normal); Ketones Urine Negative (Negative); Leukocyte Esterase Urine 2+ (Negative); Nitrate Urine Negative (Negative); Protein Urine 3+ (Negative); Specific Gravity, Urine 1.015 (1.005-1.030); Urine Appearance Cloudy (CLEAR); Urine Color Straw (Yellow); Urobilinogen Urine Norm (Negative); pH Urine 5 (5-7)
[2020-06-30 08:19] LABS: Add Urine Culture? Yes; Bacteria Urine 4+ /hpf; WBC Urine TOO NUMEROUS TO CNT /hpf (0-5)
[2020-06-30 08:25] LABS: Troponin(5th) Baseline 23 ng/L (0-10)
[2020-06-30] MEDS: piperacillin-tazobactam 3.375 GM in sodium chloride 0.9% (plus) 50 ML IV (08:52)
--- NOTE | 2020-06-30 08:59 | ECG_ITS ---
[facility] Test Date: 2020-06-30 Pat Name: Nuria Ramos Department: Room: Gender: Female Center Director Lead Teacher: : 1935 Requested By: Andreas Ye Order Number: [id number] Farhat MD: Deejay Garcia M.D. Measurements Intervals [place] Rate: 72 P: 36 CA: 180 QRS: 3 QRSD: 78 T: 27 QT: 358 QTc: 392 Interpretive Statements SINUS RHYTHM POSSIBLE LEFT ATRIAL ENLARGEMENT [-0.1mV P WAVE IN V1/V2] POSSIBLE LEFT VENTRICULAR HYPERTROPHY [VOLTAGE CRITERIA PLUS LAE OR QRS WIDENING] MINIMAL ST DEPRESSION [0.025+ mV ST DEPRESSION] Compared to ECG 12/08/2019 15:29:19 No significant changes Electronically Signed On 06-30-2020 22:47:42 CDT by Deejay Garcia M.D. [email or web address]
[2020-06-30 09:00] LABS: Lactate (Lactic Acid level) 1.2 mmol/L (0.5-2.2)
[2020-06-30 09:01] LABS: Troponin 5 2HR 22.26 ng/L (0-10)
[2020-06-30 09:05] VITALS: BP 243/112; PULSE 75; RESP 18; O2SAT 96
[2020-06-30 09:17] LABS: Troponin 5 2HR Delta -0.74 ABS# (0-10)
[2020-06-30] MEDS: labetalol 5 mg/mL SDV 20mL 10 MG IVP (09:20)
[2020-06-30] MEDS: iohexol 300 mg/mL 50 mL Btl PO (09:50)
--- NOTE | 2020-06-30 10:06 | PM.CONSULT ---
Providers/Reason For Consult Consulting Physican/Specialty*: Dean Villalobos MD Reason for Consult*: Concern for perforated duodenal ulcer Requesting Barian: Dr. Ye History of Present Illness History of Present Illness Chief Complaint: I have some discomfort History of present illness: Ms Nuria Ramos is a pleasant 85 year old female presents to the emergency department with mostly chest pain and some epigastric discomfort has been going on for the past 5 to 6 days per her grandson. She denies any constitutional symptoms in the form of fevers chills nausea or vomiting. Patient had history of large duodenal ulcer per scope was done back in November 2019 that ulcer was injected with epinephrine at that time and it was a large cratered ulcer. Most of the history is obtained from the grandson. Patient is very hard hearing Further work-up in the emergency department showed leukocytosis and a CT scan of the chest abdomen and pelvis; 1. There is prominent mural thickening of the gastric antrum and duodenum consistent with gastritis and duodenitis though other infiltrative processes cannot be excluded. 2. There is a 4 cm extraluminal fluid collection with tiny gas bubbles posterior to the pylorus which is consistent with perforated ulcer. 3. Cholelithiasis. Normal bile ducts. Delete that 4. Calcified atherosclerotic aorta. I recommended to repeat the CT scan of the abdomen and pelvis with oral contrast: 1. Prominent mural thickening of the stomach antrum and duodenum. This could be due to peptic ulcer disease but other infiltrative processes like lymphoma cannot be excluded. 2. There is a 4 cm protrusion of contrast material with a few bubbles of air protruding posterior superiorly from the antrum or pylorus. Though this could represent a unusual large diverticulum off this segment with the prominent mural thickening a perforated gastric ulcer is the primary consideration. Upper GI endoscopy may be helpful for further evaluation. 3. Cholelithiasis. General surgery was consulted for further evaluation,patient was seen and evaluated in the emergency depart Review of Systems General: Reports: 10 or more systems reviewed and unremarkable except in HPI and below Meds/Allergies Home Medications and Allergies Home Medications Medication Instructions Recorded Confirmed Last Taken Type Levemir FlexTouch U-100 Insuln See Rx Instructions .ROUTE .COMPLEX 12/08/19 12/08/19 Unknown History Novolog Flexpen U-100 Insulin See Rx Instructions .ROUTE .COMPLEX 12/08/19 12/08/19 Unknown History Tylenol Extra Strength 1,000 mg PO PRN 12/08/19 12/08/19 12/08/19 History amlodipine 5 mg PO BID 12/08/19 12/08/19 Unknown History furosemide 20 mg PO DAILY 12/08/19 12/08/19 Unknown History levothyroxine 112 mcg PO DAILY 12/08/19 12/08/19 12/08/19 History metformin 750 mg PO DAILY 12/08/19 12/08/19 Unknown History metoprolol succinate 400 mg PO DAILY 12/08/19 12/08/19 Unknown History potassium chloride 20 meq PO DAILY 12/08/19 12/08/19 Unknown History pravastatin 80 mg PO DAILY 12/08/19 12/08/19 Unknown History sucralfate 1 g PO Q6H #12 ml 12/13/19 Unknown Rx amoxicillin-pot clavulanate 1 tab PO BID #14 tab 06/30/20 Unknown Rx [Augmentin] hydrocodone-acetaminophen [[place]] 1 tab PO Q6H PRN #14 tab 06/30/20 Unknown Rx ondansetron 4 mg PO Q6H PRN #14 tab 06/30/20 Unknown Rx Allergies Allergy/AdvReac Type Severity Reaction Status Date / Time levofloxacin [From Levaquin] Allergy ADR-Itching Verified 06/30/20 15:46 Current Medications Current Medications Generic Name Dose Route Start Last Admin Trade Name Freq PRN Reason Stop Dose Admin Iohexol 0 ml 06/30/20 09:50 06/30/20 09:50 Iohexol 300 Mg/Ml 50 Ml Btl PO 06/30/20 09:51 20 ml ONCE ONE Administration PFSH Acute PFSH: Medical History Ankle fracture, left Diabetes mellitus type 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 Social History Smoking and tobacco status: never smoked Alcohol intake: never Vitals/I&O/Wt Last Vital Signs Temp 98.4 F 06/30/20 03:31 Pulse 75 06/30/20 09:05 Resp 18 06/30/20 09:05 BP 243/112 06/30/20 09:05 Pulse Ox 96 06/30/20 09:05 Weight last 48 hrs Weight 235 lb Physical Exam Narrative: EXAM NARRATIVE: Patient is conscious alert oriented X3 BMI 35 Head and neck examination PERRLA no masses no cervical lymphadenopathy no jaundice Cardiac examination audible S1-S2 no murmurs no gallops no arrhythmias Chest is clear bilateral,abscence of Rhonchi or wheezes,no surgical emphysema Abdomen nontender nondistended soft no organomegaly guarding or rigidity/no signs of peritonitis Obese A&P Assessment and plan (1) Duodenal ulcer: After history taking physical examination and reviewing the chart and images with my personal interpretation and discussing further with the patient and the family at this point since there is a potential concern of neoplastic process patient may warrant distal gastrectomy and a gastrojejunostomy. I would highly recommend to have surgical oncology service at a higher level of care involved in approaching this matter. Thank you for consulting general surgery to participate taking care Assurance and education All questions have been answered and all concerns have been addressed to patient's satisfaction. Status: Acute Consult Attestations Medical Necessity Statement: Evaluation in the emergency department with potential transfer to higher level of care Time Spent in Patient Care: 16 - 35 minutes (>than 50% of time spent in counselling and/or direct pt care on unit). Coding Level of Care Code Acute Cooker Sulfate for Valeria Disla Diagnoses Duodenal ulcer K26.9
[2020-06-30 11:20] VITALS: BP 165/78; PULSE 71; RESP 18; O2SAT 100
== END 2020-06-30 11:23 | disposition left against medical advice (07) ==
PROVIDERS: Nurse Practitioner Family; Emergency Provider Emergency Medicine
DX: K25.1 Acute gastric ulcer with perforation (principal); Z53.21 Procedure and treatment not carried out due to patient leaving prior to being seen by health care provider; Z79.4 Long term (current) use of insulin; E11.9 Type 2 diabetes mellitus without complications; E78.5 Hyperlipidemia, unspecified; I10 Essential (primary) hypertension; F03.90 Unspecified dementia, unspecified severity, without behavioral disturbance, psychotic disturbance, mood disturbance, and anxiety
CPT/HCPCS: 36415; 71275; 74176; 74177; 80053; 81001; 83605; 83690; 84484; 85025; 87086; 93005; 96361; 96365; 96366; 99285; J2543; J3490; J7030; Q9967